=== PATIENT | female | born 1955 | race Caucasian/White ===

== ENCOUNTER 2017-08-07 09:35 | Inpatient (IN) ==
[2017-08-07] MEDS ORDERED: Naloxone 0.4 MG/ML INJ IVP PRN (10:39)
[2017-08-07] MEDS ORDERED: Baclofen 10 MG TABLET PO PRN (11:27)
--- NOTE | 2017-08-07 11:36 | Internal Med History&Physical ---
Date of Encounter: 08/07/17 Time of Encounter: 11:30 Assessment and Plan (1) Acute parotitis Current visit: No Status: Acute Being managed by ENT, appreciate assistance. - Unasyn 3g Q6H - PO pain meds, continue home fentanyl patch (2) CKD (chronic kidney disease) stage 4, GFR 15-29 ml/min Current visit: Yes Status: Acute Creatinine at baseline - Avoid nephrotoxins (3) Cirrhosis Current visit: Yes Status: Acute History of this but family reportedly told that patient does not have cirrhosis based on recent evaluation at [facility]. Qualifiers: Hepatic cirrhosis type: unspecified hepatic cirrhosis Ascites presence: without ascites Qualified Code(s): K74.60 - Unspecified cirrhosis of liver (4) Hemochromatosis Current visit: No Status: Chronic Qualifiers: Hemochromatosis type: unspecified Qualified Code(s): E83.119 - Hemochromatosis, unspecified Internal Medicine - H&P: HPI Chief complaint: Right facial pain Admitted From: Direct Admit Plans for Post Hospital Care: Home History of present illness: Ms. Taylor is a 61 year old female with history of CKD, chronic decubitus ulcer , GERD, Still's disease, HTN, who presented to the ED yesterday evening with complaint of right sided facial pain which began yesterday morning. In the ED she was reportedly referred to ENT and today she was evaluated by Dr. Franco in the ENT clinic. He diagnosed parotitis and recommended admission for IV antibiotics and fluid resuscitation. She was admitted to hospitalist service because of complicated medical history. She states that she has chronic pain which is unchanged, she is on fentanyl patch and hydrocodone at home. She denies fever or chills. She has no chest pain or shortness of breath and other than the facial pain she feels she is currently at baseline pain level. 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 - follows with [facility]) Psychiatric history: depression - Past Surgical History Surgical History: appendectomy, cholecystectomy, hip replacement, knee replacement - Social History Smoking Status: Current every day smoker Smokeless Tobacco Status: No Alcohol use: none Drug use: none - Family History Father Hx Family Cardiac Disorders: Yes Internal Medicine - H&P: Meds Calcium Citrate/Vitamin D3 [Calcium Citrate +Vit D3 Tablet] 1,000 mg PO DAILY [History] Cholecalciferol (Vitamin D3) [Vitamin D3] 1,000 unit PO DAILY 10/19/15 [History] Docusate Sodium [Stool Softener] 100 mg PO TID 10/19/15 [History] L.acidoph,Paracasei, B.lactis [Probiotic] 1 each PO DAILY 10/19/15 [History] Lactose-Reduced Food [Ensure High Protein] 1 bottle PO BID 10/19/15 [History] Levothyroxine [Synthroid] 175 mcg PO DAILY 10/19/15 [History] Melatonin [Melatonin] 10 mg PO HS 10/19/15 [History] Multivitamin [Multivitamins] 1 each PO DAILY 10/19/15 [History] Omeprazole [PriLOSEC] 20 mg PO BIDAC 10/19/15 [History] Paricalcitol [Zemplar] 1 mg PO DAILY 10/19/15 [History] Sertraline [Zoloft] 100 mg PO BID 10/19/15 [History] Trazodone HCl [TraZODone] 200 mg PO HS 10/19/15 [History] Baclofen [Lioresal] 10 mg PO TID PRN 08/07/17 [History] FentaNYL PATCH [Duragesic] 100 mcg TD Q72H 08/07/17 [History] Gabapentin [Neurontin] 300 mg PO BID 08/07/17 [History] Oxycodone HCl 10 mg PO BID 08/07/17 [History] Propranolol HCl 40 mg PO BID 08/07/17 [History] 3 Allergy/AdvReac Type Severity Reaction Status Date / Time ketorolac [From Toradol] AdvReac See Verified 06/29/17 23:20 Comments NSAIDS (Non-Steroidal AdvReac See Verified 06/29/17 23:20 Anti-Inflamma Comments sulfamethoxazole AdvReac See Verified 06/29/17 23:20 [From Bactrim] Comments trimethoprim [From Bactrim] AdvReac See Verified 06/29/17 23:20 Comments All Systems PM: A 10-system review of systems was performed and is negative for pertinent findings except as documented above in the HPI. - Constitutional Vitals: BP 153/79 08/07/17 11:07 General appearance: Present: cooperative, A&O X 3, no acute distress - Head Head exam: Present: atraumatic - Eye Eye exam: Present: EOMI, sclera anicteric - ENT ENT exam: Present: mucous membranes dry - Neck Neck exam general surgery: Present: supple - Respiratory Respiratory exam: Present: CTAB. Absent: stridor, wheezes - Cardiovascular Cardiovascular exam: Present: RRR. Absent: diastolic murmur, gallop, rubs, systolic murmur - GI/Abdominal GI/Abdominal exam: Present: normal bowel sounds, soft. Absent: distended, tenderness - Extremities Exam Extremities exam: Present: pedal edema (trace lower extremity edema bilaterally) - Neurological Exam Neurological exam: Present: no focal deficits - Skin Skin exam: Absent: rash Internal Med - H&P Results - Labs CBC & Chem 7: 08/07/17 11:40
[2017-08-07 11:49] LABS: Basophils % 0.2 %; Eosinophils % 0.3 %; Hematocrit 31.1 % (35.3-44.9); Hemoglobin 10.2 g/dL (11.5-15.4); Immature Granulocytes % 0.6 % (0-4); Immature Platelets 2.7 % (1.1-6.1); Lymphocytes # 1.2 K/mcL (0.6-4.6); Lymphocytes % 8.1 %; Mean Corpuscular HGB Conc 32.8 g/dL (31.6-35.5); Mean Corpuscular Volume 94.5 fL (83.0-100.0); Mean Platelet Volume 10.3 fL (9.4-12.4); Monocytes # 1.1 K/mcL (0.0-1.3); Neutrophils # 11.7 K/mcL (1.6-8.9); Platelet Count 244 K/mcL (140-400); Red Blood Count 3.29 M/mcL (3.82-4.97); Red Cell Distribution Width 14.6 % (11.5-14.5); Segmented Neutrophils % 82.8 %
[2017-08-07] MEDS ORDERED: Ampicillin/Sulbactam 3,000 MG in 0.9 % Sodium Chloride Mini Bag 100 ML IVPB SCH ×2 (12:00→18:00)
[2017-08-07 12:02] LABS: Albumin 2.3 g/dL (3.5-5.0); Albumin/Globulin Ratio 0.4 (1.1-2.2); Bilirubin,Total 0.8 mg/dL (0.2-1.2); Globulin 5.3 g/dL (2.4-3.5); Magnesium 1.7 mg/dL (1.6-2.6); Phosphorous 5.1 mg/dL (2.3-4.7); Potassium 4.4 mEq/L (3.5-4.5); Total Protein 7.6 g/dL (6.0-8.3)
[2017-08-07 12:13] LABS: INR 1.3
[2017-08-07] MEDS: 0.9 % Sodium Chloride 1,000 ML IVC SCH ×2 (13:08→20:06)
[2017-08-07] MEDS: *HR* FentaNYL PATCH 100 MCG PATCH TD SCH (13:09)
[2017-08-07] MEDS: MethylPREDNISolone 40 MG/ML VIAL IVP SCH (15:26)
[2017-08-07] MEDS: *HR* HYDROcodone/Acet 10/325 mg TABLET PO PRN ×2 (15:26→20:36)
[2017-08-07] MEDS: Melatonin 3 MG TABLET PO SCH (20:05)
[2017-08-07] MEDS: Gabapentin 300 MG CAPSULE PO SCH (20:05)
[2017-08-07] MEDS: Ampicillin/Sulbactam 3,000 MG in 0.9 % Sodium Chloride 150 ML IVPB SCH (20:06)
[2017-08-07] MEDS ORDERED: *HR* OxyCODONE Immed Rel 5 MG TABLET PO SCH (21:00)
[2017-08-08] MEDS: MethylPREDNISolone 40 MG/ML VIAL IVP SCH ×3 (01:24→18:07)
[2017-08-08] MEDS: *HR* HYDROcodone/Acet 10/325 mg TABLET PO PRN ×5 (01:45→22:34)
--- NOTE | 2017-08-08 06:29 | ENT - Progress Note ---
Date of Encounter: 08/08/17 Time of Encounter: 06:30 - Assessment and Plan (1) Acute parotitis Current Visit: Yes Status: Acute White female followed up for acute parotitis pain better because of pain management but no real progression towards healing recommending (institution of sialagogues as soon as possible continue with milking of the gland regular basis and maximum hydration and continue steroids and antibiotics (2) Suppurative parotitis Current Visit: Yes Status: Acute Subjective Patient reports: no new complaints, still having pain, pain is less (Follow-up for parotitis still markedly swollen patient dry not using abelardo yet but improving) Objective Initial Vital Signs BP 153/79 08/07/17 11:07 - General physical appearance well developed, well nourished, moderate pain - Eyes normal ocular movement - ENT normal pinna, normal nares, normal mucosa, decreased hearing, dry mucosa - Neck other (Large parotid swelling with induration but beginning to improve still dry mouth) - Respiratory normal expansion - Labs 08/07/17 11:40 08/07/17 11:40 Diabetes panel 08/07/17 Range/Units 11:40 Sodium 133 L (136-145) mEq/L Potassium 4.4 (3.5-4.5) mEq/L Chloride 102 (98-109) mEq/L Carbon Dioxide 19 (19-29) mEq/L BUN 99 H (7-20) mg/dL Creatinine 3.33 H (0.57-1.11) mg/dL Glucose 109 H (70-99) mg/dL Calcium 9.0 (8.6-10.8) mg/dL AST 14 (5-34) Units/L ALT 10 (0-55) Units/L Alkaline Phosphatase 105 (38-126) Units/L Albumin 2.3 L (3.5-5.0) g/dL Calcium panel 08/07/17 Range/Units 11:40 Calcium 9.0 (8.6-10.8) mg/dL Phosphorus 5.1 H (2.3-4.7) mg/dL Albumin 2.3 L (3.5-5.0) g/dL Pituitary panel 08/07/17 Range/Units 11:40 Sodium 133 L (136-145) mEq/L Potassium 4.4 (3.5-4.5) mEq/L Chloride 102 (98-109) mEq/L Carbon Dioxide 19 (19-29) mEq/L BUN 99 H (7-20) mg/dL Creatinine 3.33 H (0.57-1.11) mg/dL Glucose 109 H (70-99) mg/dL Calcium 9.0 (8.6-10.8) mg/dL Adrenal panel 08/07/17 Range/Units 11:40 Sodium 133 L (136-145) mEq/L Potassium 4.4 (3.5-4.5) mEq/L Chloride 102 (98-109) mEq/L Carbon Dioxide 19 (19-29) mEq/L BUN 99 H (7-20) mg/dL Creatinine 3.33 H (0.57-1.11) mg/dL Glucose 109 H (70-99) mg/dL Calcium 9.0 (8.6-10.8) mg/dL Total Bilirubin 0.8 (0.2-1.2) mg/dL AST 14 (5-34) Units/L ALT 10 (0-55) Units/L Alkaline Phosphatase 105 (38-126) Units/L Albumin 2.3 L (3.5-5.0) g/dL Consult Discharge Plan - Plan Referrals: Az Rene MD [Primary Care Provider] -
[2017-08-08] MEDS: Cholecalciferol (D-3) 1,000 UNIT TABLET PO SCH (08:08)
[2017-08-08] MEDS: Gabapentin 300 MG CAPSULE PO SCH ×2 (08:10→20:23)
[2017-08-08] MEDS: Ampicillin/Sulbactam 3,000 MG in 0.9 % Sodium Chloride 150 ML IVPB SCH ×2 (08:11→18:08)
[2017-08-08 08:35] LABS: Basophils % 0.2 %; Hematocrit 33.2 % (35.3-44.9); Hemoglobin 10.8 g/dL (11.5-15.4); Immature Granulocytes % 0.5 % (0-4); Lymphocytes # 0.6 K/mcL (0.6-4.6); Lymphocytes % 3.4 %; Mean Corpuscular HGB Conc 32.5 g/dL (31.6-35.5); Mean Corpuscular Hemoglobin 31.2 pg (28.0-33.3); Mean Platelet Volume 10.6 fL (9.4-12.4); Monocytes # 0.1 K/mcL (0.0-1.3); Monocytes % 0.8 %; Platelet Count 226 K/mcL (140-400); Red Blood Count 3.46 M/mcL (3.82-4.97); Red Cell Distribution Width 14.7 % (11.5-14.5); Segmented Neutrophils % 95.1 %
[2017-08-08 08:43] LABS: Calcium 8.2 mg/dL (8.6-10.8); Potassium 5.3 mEq/L (3.5-4.5)
[2017-08-08] MEDS: ACIDOPH PARACASEI B LACTIS PO SCH (14:11)
[2017-08-08] MEDS: 0.9 % Sodium Chloride 1,000 ML IVC SCH ×3 (14:15→22:34)
--- NOTE | 2017-08-08 17:49 | Internal Med Progress Note ---
Date of Encounter: 08/08/17 Time of Encounter: 10:00 - Assessment and plan (1) Acute parotitis Current Visit: Yes Status: Acute Assessment and plan: -ENT consulted with recommendations for sialagogues as soon as possible and to continue with milking of the gland regular basis in addition to maximum hydration and continue steroids/antibiotics -Will continue IV Unasyn and IV steroids. (2) CKD (chronic kidney disease) stage 4, GFR 15-29 ml/min Current Visit: Yes Status: Acute Assessment and plan: -Stable; continue to monitor. (3) Cirrhosis Current Visit: Yes Status: Acute Assessment and plan: -Chronic; continue to monitor Qualifiers: Hepatic cirrhosis type: unspecified hepatic cirrhosis Ascites presence: without ascites Qualified Code(s): K74.60 - Unspecified cirrhosis of liver (4) Hypothyroid Current Visit: Yes Status: Acute Assessment and plan: -Continue home medications Qualifiers: Hypothyroidism type: unspecified Qualified Code(s): E03.9 - Hypothyroidism , unspecified - Subjective Interval history: Patient with continued swelling of right parotid gland. - Constitutional Vitals: Temp Pulse Resp BP Pulse Ox 97.5 F L 59 16 118/72 98 08/08/17 16:14 08/08/17 16:14 08/08/17 16:14 08/08/17 16:14 08/08/17 16:14 General appearance: Present: cooperative, A&O X 3, no acute distress - Respiratory Respiratory exam: Present: CTAB. Absent: accessory muscle use, rales, rhonchi, wheezes - Cardiovascular Cardiovascular exam: Present: RRR, +S1, +S2. Absent: diastolic murmur, gallop, rubs, systolic murmur Internal Medicine: Result - Labs CBC & Chem 7: 08/08/17 08:10 08/08/17 08:10 Labs: Short CBC 08/08/17 Range/Units 08:10 WBC 16.8 H (4.3-11.1) K/mcL Hgb 10.8 L (11.5-15.4) g/dL Hct 33.2 L (35.3-44.9) % Plt Count 226 (140-400) K/mcL Neutrophils # 16.0 H (1.6-8.9) K/mcL BMP 08/08/17 08:10 Sodium 136 Potassium 5.3 H Chloride 109 Carbon Dioxide 14 L BUN 99 H Creatinine 3.13 H Glucose 133 H Calcium 8.2 L - ABG Interpretation ABG results: PT/INR, D-dimer PT 14.0 Seconds (9.4-12.1) H 08/07/17 11:40 Consult Discharge Plan - Plan Referrals: Az Rene MD [Primary Care Provider] -
[2017-08-09] MEDS: MethylPREDNISolone 40 MG/ML VIAL IVP SCH ×3 (00:19→16:11)
[2017-08-09] MEDS: Melatonin 3 MG TABLET PO SCH ×2 (03:39→07:09)
[2017-08-09] MEDS: *HR* HYDROcodone/Acet 10/325 mg TABLET PO PRN ×3 (03:45→22:39)
[2017-08-09] MEDS: traZODone 50 MG TABLET PO PRN (07:09)
--- NOTE | 2017-08-09 08:09 | ENT - Progress Note ---
Date of Encounter: 08/09/17 Time of Encounter: 08:00 - Assessment and Plan (1) Acute parotitis Current Visit: Yes Status: Acute White female followed up for acute parotitis white count elevation yesterday and failure to turn the corner makes me slightly concerned about the possibility of potential abscessing of the right parotid repeat white count today and if this is continuing to go North consider repeat CT to document the presence of abscess which may require operative drainage culture result from office reveals staph aureus which should be responsive to Augmentin or Unasyn (2) Suppurative parotitis Current Visit: Yes Status: Acute Subjective Patient reports: no new complaints, still having pain (Some decrease in edema but yesterday's white count was substantially higher with left shift still getting some pus from the duct patient is afebrile ) Objective Initial Vital Signs BP 153/79 08/07/17 11:07 - General physical appearance well developed, well nourished, no distress - Eyes PERRL, normal ocular movement - ENT normal pinna, normal nares, normal mucosa, dry mucosa, Other (Possible able to be excluded from right duct on milking mouth still dry) - Neck other (Substantial parotid enlargement slightly less than before but still firm hard and tender) - Respiratory normal expansion, normal respiratory effort - Abdomen soft, non tender - Integumentary no rash, no growths, other (Left ear sore at site of previous melanoma excision years ago) - Neurologic CN 2-12 grossly intact, normal coordination - Labs 08/08/17 08:10 08/08/17 08:10 Diabetes panel 08/08/17 Range/Units 08:10 Sodium 136 (136-145) mEq/L Potassium 5.3 H (3.5-4.5) mEq/L Chloride 109 (98-109) mEq/L Carbon Dioxide 14 L (19-29) mEq/L BUN 99 H (7-20) mg/dL Creatinine 3.13 H (0.57-1.11) mg/dL Glucose 133 H (70-99) mg/dL Calcium 8.2 L (8.6-10.8) mg/dL Calcium panel 08/08/17 Range/Units 08:10 Calcium 8.2 L (8.6-10.8) mg/dL Pituitary panel 08/08/17 Range/Units 08:10 Sodium 136 (136-145) mEq/L Potassium 5.3 H (3.5-4.5) mEq/L Chloride 109 (98-109) mEq/L Carbon Dioxide 14 L (19-29) mEq/L BUN 99 H (7-20) mg/dL Creatinine 3.13 H (0.57-1.11) mg/dL Glucose 133 H (70-99) mg/dL Calcium 8.2 L (8.6-10.8) mg/dL Adrenal panel 08/08/17 Range/Units 08:10 Sodium 136 (136-145) mEq/L Potassium 5.3 H (3.5-4.5) mEq/L Chloride 109 (98-109) mEq/L Carbon Dioxide 14 L (19-29) mEq/L BUN 99 H (7-20) mg/dL Creatinine 3.13 H (0.57-1.11) mg/dL Glucose 133 H (70-99) mg/dL Calcium 8.2 L (8.6-10.8) mg/dL Consult Discharge Plan - Plan Referrals: Az Rene MD [Primary Care Provider] -
[2017-08-09] MEDS: Ampicillin/Sulbactam 3,000 MG in 0.9 % Sodium Chloride 150 ML IVPB SCH ×2 (08:39→19:26)
[2017-08-09] MEDS: 0.9 % Sodium Chloride 1,000 ML IVC SCH ×2 (08:39→16:14)
[2017-08-09] MEDS: ACIDOPH PARACASEI B LACTIS PO SCH (08:40)
[2017-08-09 09:04] LABS: Calcium 7.3 mg/dL (8.6-10.8); Potassium 4.7 mEq/L (3.5-4.5)
[2017-08-09 14:29] LABS: Basophils % 0.1 %; Hemoglobin 7.9 g/dL (11.5-15.4); Lymphocytes # 0.9 K/mcL (0.6-4.6); Lymphocytes % 6.3 %; Mean Corpuscular HGB Conc 32.9 g/dL (31.6-35.5); Mean Corpuscular Hemoglobin 31.5 pg (28.0-33.3); Mean Corpuscular Volume 95.6 fL (83.0-100.0); Mean Platelet Volume 10.4 fL (9.4-12.4); Monocytes # 0.4 K/mcL (0.0-1.3); Monocytes % 2.9 %; Neutrophils # 12.8 K/mcL (1.6-8.9); Platelet Count 200 K/mcL (140-400); Red Blood Count 2.51 M/mcL (3.82-4.97); Red Cell Distribution Width 15.1 % (11.5-14.5); Segmented Neutrophils % 89.7 %
[2017-08-09] MEDS: Gabapentin 300 MG CAPSULE PO SCH ×2 (16:12→22:39)
[2017-08-09] MEDS: Cholecalciferol (D-3) 1,000 UNIT TABLET PO SCH (16:13)
--- NOTE | 2017-08-09 18:26 | Internal Med Progress Note ---
Date of Encounter: 08/09/17 Time of Encounter: 11:00 - Assessment and plan (1) Acute parotitis Current Visit: Yes Status: Acute Assessment and plan: -Decreased swelling of right parotid gland and patient reports decreased tenderness as well. -Leukocytosis also improving -ENT consulted with recommendations for sialagogues as soon as possible and to continue with milking of the gland regular basis in addition to maximum hydration and continue steroids/antibiotics -Will continue IV Unasyn and IV steroids. (2) CKD (chronic kidney disease) stage 4, GFR 15-29 ml/min Current Visit: Yes Status: Acute Assessment and plan: -Stable; continue to monitor. (3) Cirrhosis Current Visit: Yes Status: Acute Assessment and plan: -Chronic; continue to monitor Qualifiers: Hepatic cirrhosis type: unspecified hepatic cirrhosis Ascites presence: without ascites Qualified Code(s): K74.60 - Unspecified cirrhosis of liver (4) Hypothyroid Current Visit: Yes Status: Acute Assessment and plan: -Continue home medications Qualifiers: Hypothyroidism type: unspecified Qualified Code(s): E03.9 - Hypothyroidism , unspecified - Subjective Interval history: Patient with improvement of swelling of right parotid gland. Patient also reports a decreased tenderness. - Constitutional Vitals: Temp Pulse Resp BP Pulse Ox 98.1 F 63 16 116/70 95 08/09/17 15:12 08/09/17 15:12 08/09/17 15:12 08/09/17 15:12 08/09/17 15:12 General appearance: Present: cooperative, A&O X 3, no acute distress - ENT Additional comments: Decreased swelling of right parotid gland - Respiratory Respiratory exam: Present: CTAB. Absent: accessory muscle use, rales, rhonchi, wheezes - Cardiovascular Cardiovascular exam: Present: RRR, +S1, +S2. Absent: diastolic murmur, gallop, rubs, systolic murmur Internal Medicine: Result - Labs CBC & Chem 7: 08/09/17 14:03 08/09/17 08:36 Labs: Short CBC 08/09/17 Range/Units 14:03 WBC 14.3 H (4.3-11.1) K/mcL Hgb 7.9 L D (11.5-15.4) g/dL Hct 24.0 L (35.3-44.9) % Plt Count 200 (140-400) K/mcL Neutrophils # 12.8 H (1.6-8.9) K/mcL BMP 08/09/17 08:36 Sodium 134 L Potassium 4.7 H Chloride 110 H Carbon Dioxide 12 L BUN 95 H Creatinine 3.05 H Glucose 175 H Calcium 7.3 L - ABG Interpretation ABG results: PT/INR, D-dimer PT 14.0 Seconds (9.4-12.1) H 08/07/17 11:40 Consult Discharge Plan - Plan Referrals: Az Rene MD [Primary Care Provider] -
[2017-08-10] MEDS: MethylPREDNISolone 40 MG/ML VIAL IVP SCH ×4 (01:58→23:55)
[2017-08-10] MEDS: *HR* HYDROcodone/Acet 10/325 mg TABLET PO PRN ×4 (02:58→15:44)
[2017-08-10] MEDS: 0.9 % Sodium Chloride 1,000 ML IVC SCH ×3 (02:59→18:11)
[2017-08-10] MEDS: Melatonin 3 MG TABLET PO SCH ×2 (07:09→23:55)
[2017-08-10] MEDS: Cholecalciferol (D-3) 1,000 UNIT TABLET PO SCH (08:45)
[2017-08-10] MEDS: ACIDOPH PARACASEI B LACTIS PO SCH (08:45)
[2017-08-10] MEDS: Gabapentin 300 MG CAPSULE PO SCH ×2 (08:45→21:37)
[2017-08-10 08:47] LABS: Calcium 7.6 mg/dL (8.6-10.8); Potassium 4.9 mEq/L (3.5-4.5)
[2017-08-10 08:48] LABS: Basophils % 0.1 %; Hematocrit 26.4 % (35.3-44.9); Hemoglobin 8.4 g/dL (11.5-15.4); Immature Granulocytes % 1.5 % (0-4); Lymphocytes # 0.9 K/mcL (0.6-4.6); Lymphocytes % 6.1 %; Mean Corpuscular HGB Conc 31.8 g/dL (31.6-35.5); Mean Corpuscular Hemoglobin 31.1 pg (28.0-33.3); Mean Corpuscular Volume 97.8 fL (83.0-100.0); Monocytes # 0.3 K/mcL (0.0-1.3); Monocytes % 2.2 %; Platelet Count 216 K/mcL (140-400); Red Cell Distribution Width 15.5 % (11.5-14.5); Segmented Neutrophils % 90.1 %
[2017-08-10] MEDS: Ampicillin/Sulbactam 3,000 MG in 0.9 % Sodium Chloride 150 ML IVPB SCH ×3 (08:49→18:28)
--- NOTE | 2017-08-10 09:46 | ENT - Progress Note ---
<Maryan Shepherd - Last Filed: 08/10/17 10:50> Date of Encounter: 08/10/17 Time of Encounter: 09:43 - Assessment and Plan (1) Acute parotitis Current Visit: Yes Status: Acute Patient seen and examined at bedside today. Patient reports mild pain, decreased from previous pain level. Purulent drainage expelled from right parotoid duct, with 5x4 area of induration present to right cheek and tail of parotid, improved from previous. Leukocytosis improving, WBC's 14.4 today. Recommend to continue lemon slices, manual drainage and massage of right parotid gland, heating pad to the affected area, and current antibiotic regimen. (2) Oral thrush Current Visit: Yes Status: Acute White patchy areas noted to bilateral buccal mucosa, surface of tongue, and area of the submandibular ducts. Patient also reports burning of the tongue when eating abelardo. Will start nystatin swish and spit QID for treatment of oral thrush. Subjective Patient reports: feels better, pain is less, tolerating liquids well, tolerating a regular diet, afebrile Objective Initial Vital Signs BP 153/79 08/07/17 11:07 - General physical appearance no distress - Eyes normal ocular movement - ENT Other (purulent drainage expelled from right parotoid duct, 5x4 area of induration noted to right cheek and tail of the parotid, white patches noted to buccal mucosa bilaterally, surface of tongue, and covering the area of the submandibular ducts bilaterally ) - Respiratory normal respiratory effort - Labs 08/10/17 08:21 08/10/17 08:21 Diabetes panel 08/10/17 Range/Units 08:21 Sodium 134 L (136-145) mEq/L Potassium 4.9 H (3.5-4.5) mEq/L Chloride 112 H (98-109) mEq/L Carbon Dioxide 12 L (19-29) mEq/L BUN 96 H (7-20) mg/dL Creatinine 2.94 H (0.57-1.11) mg/dL Glucose 132 H (70-99) mg/dL Calcium 7.6 L (8.6-10.8) mg/dL Calcium panel 08/10/17 Range/Units 08:21 Calcium 7.6 L (8.6-10.8) mg/dL Pituitary panel 08/10/17 Range/Units 08:21 Sodium 134 L (136-145) mEq/L Potassium 4.9 H (3.5-4.5) mEq/L Chloride 112 H (98-109) mEq/L Carbon Dioxide 12 L (19-29) mEq/L BUN 96 H (7-20) mg/dL Creatinine 2.94 H (0.57-1.11) mg/dL Glucose 132 H (70-99) mg/dL Calcium 7.6 L (8.6-10.8) mg/dL Adrenal panel 08/10/17 Range/Units 08:21 Sodium 134 L (136-145) mEq/L Potassium 4.9 H (3.5-4.5) mEq/L Chloride 112 H (98-109) mEq/L Carbon Dioxide 12 L (19-29) mEq/L BUN 96 H (7-20) mg/dL Creatinine 2.94 H (0.57-1.11) mg/dL Glucose 132 H (70-99) mg/dL Calcium 7.6 L (8.6-10.8) mg/dL Consult Discharge Plan - Plan Referrals: Az Rene MD [Primary Care Provider] - <Amita Shin - Last Filed: 08/10/17 15:32> Date of Encounter: 08/10/17 - Assessment and Plan (1) Oral thrush Current Visit: Yes Status: Acute Agree with assessment as above. Patient with evidence of oral thrush likely secondary to antibiotic treatment. Patient will need script for nystatin swish and spit QID for a total of 7-10 days or until symptoms resolve. (2) Acute parotitis Current Visit: Yes Status: Acute Agree with above, continue to perform parotid massage multiple times daily. At this point patient is clinically improving and would not recommend repeating any scans. If patient continues to improve would recommend transitioning to oral antibiotic, Augmentin upon discharge with follow up to ENT in 2 weeks. Objective Initial Vital Signs BP 153/79 08/07/17 11:07 - Labs 08/10/17 08:21 08/10/17 08:21 Diabetes panel 08/10/17 Range/Units 08:21 Sodium 134 L (136-145) mEq/L Potassium 4.9 H (3.5-4.5) mEq/L Chloride 112 H (98-109) mEq/L Carbon Dioxide 12 L (19-29) mEq/L BUN 96 H (7-20) mg/dL Creatinine 2.94 H (0.57-1.11) mg/dL Glucose 132 H (70-99) mg/dL Calcium 7.6 L (8.6-10.8) mg/dL Calcium panel 08/10/17 Range/Units 08:21 Calcium 7.6 L (8.6-10.8) mg/dL Pituitary panel 08/10/17 Range/Units 08:21 Sodium 134 L (136-145) mEq/L Potassium 4.9 H (3.5-4.5) mEq/L Chloride 112 H (98-109) mEq/L Carbon Dioxide 12 L (19-29) mEq/L BUN 96 H (7-20) mg/dL Creatinine 2.94 H (0.57-1.11) mg/dL Glucose 132 H (70-99) mg/dL Calcium 7.6 L (8.6-10.8) mg/dL Adrenal panel 08/10/17 Range/Units 08:21 Sodium 134 L (136-145) mEq/L Potassium 4.9 H (3.5-4.5) mEq/L Chloride 112 H (98-109) mEq/L Carbon Dioxide 12 L (19-29) mEq/L BUN 96 H (7-20) mg/dL Creatinine 2.94 H (0.57-1.11) mg/dL Glucose 132 H (70-99) mg/dL Calcium 7.6 L (8.6-10.8) mg/dL
[2017-08-10] MEDS: *HR* FentaNYL PATCH 100 MCG PATCH TD SCH (13:52)
[2017-08-10] MEDS: Nystatin SUSP 5 ML UD.LIQ PO SCH ×3 (13:52→21:36)
--- NOTE | 2017-08-10 18:59 | Internal Med Progress Note ---
Date of Encounter: 08/10/17 Time of Encounter: 11:00 - Assessment and plan (1) Acute parotitis Current Visit: Yes Status: Acute Assessment and plan: -Decreased swelling of right parotid gland and patient reports decreased tenderness as well. -Leukocytosis also improving -ENT consulted with recommendations for sialagogues as soon as possible and to continue with milking of the gland regular basis in addition to maximum hydration and continue steroids/antibiotics -Will continue IV Unasyn and IV steroids. (2) CKD (chronic kidney disease) stage 4, GFR 15-29 ml/min Current Visit: Yes Status: Acute Assessment and plan: -Stable; continue to monitor. (3) Cirrhosis Current Visit: Yes Status: Acute Assessment and plan: -Chronic; continue to monitor Qualifiers: Hepatic cirrhosis type: unspecified hepatic cirrhosis Ascites presence: without ascites Qualified Code(s): K74.60 - Unspecified cirrhosis of liver (4) Hypothyroid Current Visit: Yes Status: Acute Assessment and plan: -Continue home medications Qualifiers: Hypothyroidism type: unspecified Qualified Code(s): E03.9 - Hypothyroidism , unspecified (5) Oral thrush Current Visit: Yes Status: Acute Assessment and plan: -Nystatin started per ENT - Subjective Interval history: Patient with improvement of swelling of right parotid gland. Patient also reports a decreased tenderness. - Constitutional Vitals: Temp Pulse Resp BP Pulse Ox 98.3 F 56 16 146/63 96 08/10/17 12:12 08/10/17 12:12 08/10/17 12:12 08/10/17 12:12 08/10/17 12:12 General appearance: Present: cooperative, A&O X 3, no acute distress - Respiratory Respiratory exam: Present: CTAB. Absent: accessory muscle use, rales, rhonchi, wheezes - Cardiovascular Cardiovascular exam: Present: RRR, +S1, +S2. Absent: diastolic murmur, gallop, rubs, systolic murmur Internal Medicine: Result - Labs CBC & Chem 7: 08/10/17 08:21 08/10/17 08:21 Labs: Short CBC 08/10/17 Range/Units 08:21 WBC 14.4 H (4.3-11.1) K/mcL Hgb 8.4 L (11.5-15.4) g/dL Hct 26.4 L (35.3-44.9) % Plt Count 216 (140-400) K/mcL Neutrophils # 13.0 H (1.6-8.9) K/mcL BMP 08/10/17 08:21 Sodium 134 L Potassium 4.9 H Chloride 112 H Carbon Dioxide 12 L BUN 96 H Creatinine 2.94 H Glucose 132 H Calcium 7.6 L - ABG Interpretation ABG results: PT/INR, D-dimer PT 14.0 Seconds (9.4-12.1) H 08/07/17 11:40 Consult Discharge Plan - Plan Referrals: Az Rene MD [Primary Care Provider] -
[2017-08-10] MEDS: traZODone 50 MG TABLET PO PRN (23:55)
[2017-08-11] MEDS: *HR* HYDROcodone/Acet 10/325 mg TABLET PO PRN ×3 (00:01→15:09)
[2017-08-11] MEDS: 0.9 % Sodium Chloride 1,000 ML IVC SCH ×2 (03:23→03:25)
[2017-08-11] MEDS: Ampicillin/Sulbactam 3,000 MG in 0.9 % Sodium Chloride 150 ML IVPB SCH (05:25)
[2017-08-11] MEDS: Gabapentin 300 MG CAPSULE PO SCH (09:19)
[2017-08-11] MEDS: MethylPREDNISolone 40 MG/ML VIAL IVP SCH ×2 (09:19→15:09)
[2017-08-11] MEDS: Cholecalciferol (D-3) 1,000 UNIT TABLET PO SCH (09:20)
[2017-08-11] MEDS: Nystatin SUSP 5 ML UD.LIQ PO SCH ×3 (09:20→15:13)
[2017-08-11] MEDS: ACIDOPH PARACASEI B LACTIS PO SCH (09:21)
[2017-08-11 11:10] VITALS: BP 133/71
--- NOTE | 2017-08-11 11:45 | Discharge Summary ---
Date of Encounter: 08/11/17 Time of Encounter: 10:40 - Discharge Diagnosis (1) Acute parotitis Priority: Primary Status: Acute (2) Cirrhosis Priority: Secondary Status: Acute Qualifiers: Hepatic cirrhosis type: unspecified hepatic cirrhosis Ascites presence: without ascites Qualified Code(s): K74.60 - Unspecified cirrhosis of liver (3) CKD (chronic kidney disease) stage 4, GFR 15-29 ml/min Priority: Secondary Status: Acute (4) Hypothyroid Priority: Secondary Status: Acute Qualifiers: Hypothyroidism type: other Qualified Code(s): E03.8 - Other specified hypothyroidism (5) Oral thrush Priority: Secondary Status: Acute - Discharge Medications Prescriptions: HYDROcodone/Acet 10/325 mg [[place] 10-325 mg] 1 each PO Q6HR PRN #16 tablet PRN Reason: Pain Amoxicillin/Clavulanate [Augmentin] 875 mg PO BIDWM #14 tablet Nystatin [Nystatin Suspension] 500,000 units PO QID #120 ml Home Medications: Calcium Citrate/Vitamin D3 [Calcium Citrate-Vit D3 Tablet] 1,000 mg PO DAILY 01/27 [History] Cholecalciferol (Vitamin D3) [Vitamin D3] 1,000 unit PO DAILY 10/19/15 [History] Docusate Sodium [Stool Softener] 100 mg PO TID 10/19/15 [History] L.acidoph,Paracasei, B.lactis [Probiotic] 1 each PO DAILY 10/19/15 [History] Lactose-Reduced Food [Ensure High Protein] 1 bottle PO BID 10/19/15 [History] Levothyroxine [Synthroid] 175 mcg PO DAILY 10/19/15 [History] Melatonin 10 mg PO HS 10/19/15 [History] Multivitamin [Multivitamins] 1 each PO DAILY 10/19/15 [History] Omeprazole [PriLOSEC] 20 mg PO BIDAC 10/19/15 [History] Paricalcitol [Zemplar] 1 mg PO DAILY 10/19/15 [History] Sertraline [Zoloft] 100 mg PO BID 10/19/15 [History] Trazodone HCl [TraZODone] 200 mg PO HS 10/19/15 [History] Baclofen [Lioresal] 10 mg PO TID PRN 08/07/17 [History] FentaNYL PATCH [Duragesic] 100 mcg TD Q72H 08/07/17 [History] Gabapentin [Neurontin] 300 mg PO BID 08/07/17 [History] Propranolol HCl 40 mg PO BID 08/07/17 [History] Amoxicillin/Clavulanate [Augmentin] 875 mg PO BIDWM #14 tablet 08/11/17 [Rx] HYDROcodone/Acet 10/325 mg [[place] 10-325 mg] 1 each PO Q6HR PRN #16 tablet 08/11 [Rx] Nystatin [Nystatin Suspension] 500,000 units PO QID #120 ml 08/11/17 [Rx] Allergies/Adverse Reactions: 3 Allergy/AdvReac Type Severity Reaction Status Date / Time ketorolac [From Toradol] AdvReac See Verified 06/29/17 23:20 Comments NSAIDS (Non-Steroidal AdvReac See Verified 06/29/17 23:20 Anti-Inflamma Comments sulfamethoxazole AdvReac See Verified 06/29/17 23:20 [From Bactrim] Comments trimethoprim [From Bactrim] AdvReac See Verified 06/29/17 23:20 Comments Date of admission: 08/09/17 18:55 Primary care physician: Az Rene MD Consults: 08/07/17 11:45 Consult to ENT [CONS] Routine Consulting Provider: [facility] [place] Reason for Consult: parotitis Call Completed: Yes 08/07/17 12:57 Consult to Wound Care [CONS] Routine Reason for Consult: decubitus ulcer Call Completed: Yes Discharging clinician: Mal Allison Anticipated date of discharge: 08/11/17 - Patient Status Disposition: Home, Self-Care Condition: Good Functional capacity at discharge: independent ambulation Overall status at discharge: patient is progressing back to baseline - Discharge Instructions Instructions: Hydrocodone/Acetaminophen (By mouth), Nystatin (By mouth), Amoxicillin/Clavulanate Potassium (By mouth), Chronic Kidney Disease (GEN) Follow Up With: Javier Espinoza MD [Non-Partnered Physician] - 08/18/17 1:45 pm Az Rene MD [Primary Care Provider] - 08/17/17 1:00 pm () Amita Shin DO [Non-Partnered Physician] - 08/19/17 1:30 pm () - Diet and Activity Activity: increase activity as tolerated Diet: advance to your usual diet Hospital course: Ms. Taylor is a 61 year old female patient with history of cirrhosis of the liver, chronic kidney disease stage IV, hemochromatosis who was admitted here with right facial pain. She was diagnosed with acute parotitis and was treated with IV antibiotics. ENT was consulted and they evaluated the patient and did not recommend any surgical intervention. Patient was recommended to perform parotid massage multiple times daily and this along with the use of IV antibiotics improved her symptoms. She is not doing much better and is stable to be discharged home. She was also diagnosed with oral thrush and has been prescribed oral nystatin suspension to treat this. She will be discharged home today on Augmentin to complete treatment course. Patient does have chronic decubitus ulcer for which she performs wound care at home. - Time Spent with Patient Total time spent providing and/or coordinating discharge services: Greater than 30 minutes (35 min) - Constitutional Vitals: Temp Pulse Resp BP Pulse Ox 97.9 F 55 18 133/71 95 08/11/17 11:09 08/11/17 11:09 08/11/17 11:09 08/11/17 11:09 08/11/17 11:09 General appearance: Present: cooperative, A&O X 3, no acute distress, answers questions appropriately - ENT Additional comments: right parotid gland swollen. Non tender. NO erythema - Neck Neck exam general surgery: Present: supple, trachea midline. Absent: lymphadenopathy - Respiratory Respiratory exam: Present: CTAB. Absent: accessory muscle use, rales, rhonchi, wheezes - Cardiovascular Cardiovascular exam: Present: RRR, +S1, +S2. Absent: diastolic murmur, gallop, rubs, systolic murmur - Extremities Exam Extremities exam: Present: warm, radial pulses palpable and symmetrical. Absent : calf tenderness, cyanotic, pedal edema - Neurological Exam Neurological exam: Present: alert, oriented X3, no focal deficits. Absent: facial droop, speech deficit
--- NOTE | 2017-08-11 12:57 | ENT - Progress Note ---
Date of Encounter: 08/11/17 Time of Encounter: 12:57 - Assessment and Plan (1) Acute parotitis Current Visit: Yes Status: Acute Patient seen and examined at bedside today. Patient reports little to no pain at times. Thin purulent drainage expelled from right parotoid duct, with 4x3 area of induration present to right cheek and tail of parotid, improved from yesterday. Patient states she is tolerating liquids and a regular diet at this time. Continue to recommend lemon slices, manual drainage and massage of right parotid gland, heating pad to the affected area, and antibiotics. May transition to oral antibiotic, Augmentin for 7 days upon discharge with follow up to ENT in 1 week. (2) Oral thrush Current Visit: Yes Status: Acute Mucosa noted to have normal appearance upon exam today. Patient does continue to report mild burning of the tongue at times but improved from yesterday. Continue nystatin swish and spit QID for treatment of oral thrush. Subjective Patient reports: no new complaints, feels better, pain is less, tolerating liquids well, tolerating a regular diet Objective Initial Vital Signs BP 153/79 08/07/17 11:07 - General physical appearance no distress - Eyes normal ocular movement - ENT CN 2-12 grossly intact, Other (thin purulent drainage expelled from right parotoid duct, 4x3 induration noted to the right cheek and into the tail of the parotoid (decreased from previous)) - Neck trachea midline - Respiratory normal respiratory effort - Labs 08/10/17 08:21 08/10/17 08:21 Consult Discharge Plan - Plan Instructions: Hydrocodone/Acetaminophen (By mouth), Nystatin (By mouth), Amoxicillin/Clavulanate Potassium (By mouth), Chronic Kidney Disease (GEN) Referrals: Javier Espinoza MD [Non-Partnered Physician] - 08/18/17 1:45 pm Az Rene MD [Primary Care Provider] - 08/17/17 1:00 pm () Amita Shin DO [Non-Partnered Physician] - 08/19/17 1:30 pm () Prescriptions: HYDROcodone/Acet 10/325 mg [[place] 10-325 mg] 1 each PO Q6HR PRN #16 tablet PRN Reason: Pain Amoxicillin/Clavulanate [Augmentin] 875 mg PO BIDWM #14 tablet Nystatin [Nystatin Suspension] 500,000 units PO QID #120 ml
[2017-08-12] MEDS ORDERED: Lactobacillus 1 EACH CAP.SPRINK PO SCH (09:00)
== END 2017-08-11 18:08 | disposition home or self-care (01) | DRG 155 ==
LOC: 2NENU → SUATTDRO 08-09 18:55
PROVIDERS: ADMIT Internal Medicine; ATTEND Internal Medicine

== ENCOUNTER 2017-10-18 00:24 | Inpatient (IN) ==
[2017-10-18] MEDS ORDERED: Naloxone 0.4 MG/ML INJ IVP PRN ×2 (03:03)
[2017-10-18] MEDS ORDERED: Ondansetron 4 MG/2 ML VIAL IVP PRN (03:03)
[2017-10-18] MEDS ORDERED: 0.9 % Sodium Chloride 1,000 ML IVC SCH (03:15)
--- NOTE | 2017-10-18 03:29 | Internal Med History&Physical ---
Date of Encounter: 10/18/17 Time of Encounter: 02:00 Assessment and Plan (1) Closed right hip fracture Current visit: Yes Status: Acute Pt has mechanical fall and Rt hip fracture. - IVF, pain med. NPO now for possible surgery - Consult othopedics. Qualifiers: Encounter type: initial encounter Qualified Code(s): S72.001A - Fracture of unspecified part of neck of right femur, initial encounter for closed fracture (2) Osteoporosis Current visit: Yes Status: Acute Cont home meds Qualifiers: Osteoporosis type: unspecified Presence of current pathological fracture: unspecified Qualified Code(s): M81.0 - Age-related osteoporosis without current pathological fracture (3) CKD (chronic kidney disease) Current visit: No Status: Acute Cr 3.81 in [facility], is about at her baseline. Qualifiers: Chronic kidney disease stage: stage 4 (severe) Qualified Code(s): N18.4 - Chronic kidney disease, stage 4 (severe) (4) Hypothyroid Current visit: No Status: Acute Cont home med after resume diet Qualifiers: Hypothyroidism type: acquired Qualified Code(s): E03.9 - Hypothyroidism, unspecified (5) Sacral decubitus ulcer, stage IV Current visit: No Status: Acute Chronic, will consult wound care. (6) DVT prophylaxis Current visit: Yes Status: Acute SCDs at this point, may start AC after surgery. Internal Medicine - H&P: HPI Chief complaint: Right hip pain Admitted From: Intrahospital Transfer Plans for Post Hospital Care: Transfer Inp Rehab Fac History of present illness: Ms. Taylor is a 61 year old female with Hx of osteoperosis, depression, chronic sacral wound transferred from [facility] for fall and right Hip pain. Pt has mechanical fall today around 9pm when she went to bathroom. Denies LOC, denies head/neck injury. Pt feel right hip pain and went to [facility]. She was found Right hip fracture. Pt move other limbs w/o pain. She denies fever, chest pain, SOB, or dizziness. Pt was transfer to our hospital for orthopedics consult. Past Med Surg Social Fam HX - Past Medical History Medical history: cirrhosis, hypertension, liver disease, renal disease, thyroid disease, other Psychiatric history: depression - Past Surgical History Surgical History: non-contributory, appendectomy, , cholecystectomy, hip replacement, knee replacement, orthopedic, other, bariatric surgery - Social History Smoking Status: Current every day smoker Packs per day: <1 pack Smokeless Tobacco Status: No Alcohol use: none Drug use: none - Family History Father Adopted: [place]: Kwasi Aranda Age: 63 Living Status: Age at : 63 Cause of : Heart attack Hx Family Cardiac Disorders: Yes (heart disease) Hx Family Respiratory Disorders: No Hx Family Cancer: No Hx Family GI Disorders: No Hx Family Endocrine Disorder: Yes Hx Family Neuromuscular Disorders: No Hx Family Neurologic Disorders: No Hx Family HEENT Disorders: No Hx Family Autoimmune Disorders: No Mother History Unknown: Yes Adopted: No Living Status: Internal Medicine - H&P: Meds Calcium Citrate/Vitamin D3 [Calcium Citrate-Vit D3 Tablet] 1,000 mg PO DAILY 01/27 [History] Cholecalciferol (Vitamin D3) [Vitamin D3] 1,000 unit PO DAILY 10/19/15 [History] Docusate Sodium [Stool Softener] 100 mg PO TID 10/19/15 [History] L.acidoph,Paracasei, B.lactis [Probiotic] 1 each PO DAILY 10/19/15 [History] Lactose-Reduced Food [Ensure High Protein] 1 bottle PO BID 10/19/15 [History] Levothyroxine [Synthroid] 175 mcg PO DAILY 10/19/15 [History] Melatonin 10 mg PO HS 10/19/15 [History] Multivitamin [Multivitamins] 1 each PO DAILY 10/19/15 [History] Omeprazole [PriLOSEC] 20 mg PO BIDAC 10/19/15 [History] Paricalcitol [Zemplar] 1 mg PO DAILY 10/19/15 [History] Sertraline [Zoloft] 100 mg PO BID 10/19/15 [History] Trazodone HCl [TraZODone] 200 mg PO HS 10/19/15 [History] Baclofen [Lioresal] 10 mg PO TID PRN 08/07/17 [History] FentaNYL PATCH [Duragesic] 100 mcg TD Q72H 08/07/17 [History] Gabapentin [Neurontin] 300 mg PO BID 08/07/17 [History] Propranolol HCl 40 mg PO BID 08/07/17 [History] Amoxicillin/Clavulanate [Augmentin] 875 mg PO BIDWM #14 tablet 08/11/17 [Rx] HYDROcodone/Acet 10/325 mg [[place] 10-325 mg] 1 each PO Q6HR PRN #16 tablet 08/11 [Rx] Nystatin [Nystatin Suspension] 500,000 units PO QID #120 ml 08/11/17 [Rx] 3 Allergy/AdvReac Type Severity Reaction Status Date / Time ketorolac [From Toradol] AdvReac See Verified 06/29/17 23:20 Comments NSAIDS (Non-Steroidal AdvReac See Verified 06/29/17 23:20 Anti-Inflamma Comments sulfamethoxazole AdvReac See Verified 06/29/17 23:20 [From Bactrim] Comments trimethoprim [From Bactrim] AdvReac See Verified 06/29/17 23:20 Comments All Systems PM: A 10-system review of systems was performed and is negative for pertinent findings except as documented above in the HPI. - Head Head exam: Present: atraumatic, normocephalic - Eye Eye exam: Present: PERRL, conjuntiva pink, sclera anicteric Pupils: Present: PERRL - Neck Neck exam general surgery: Present: supple, trachea midline. Absent: lymphadenopathy - Respiratory Respiratory exam: Present: CTAB. Absent: accessory muscle use, rales, rhonchi, wheezes - Cardiovascular Cardiovascular exam: Present: RRR, +S1, +S2. Absent: diastolic murmur, gallop, rubs, systolic murmur - GI/Abdominal GI/Abdominal exam: Present: normal bowel sounds, soft, no peritoneal signs. Absent: distended, tenderness - Extremities Exam Extremities exam: Present: tenderness (On Right hip with limited ROM), warm, radial pulses palpable and symmetrical. Absent: calf tenderness, cyanotic, pedal edema - Neurological Exam Neurological exam: Present: CN II-XII intact, oriented X3, no focal deficits. Absent: pronater drift, facial droop, speech deficit - Skin Skin exam: Present: dry Additional comments: Sacral wound Internal Med - H&P Results - EKG Data -: EKG Interpreted by Myself EKG shows normal: sinus rhythm Rate: normal
[2017-10-18] MEDS: OXYCODONE Oral CONC 10 MG/0.5 ML ORAL.SYG SL PRN ×2 (04:19→12:38)
[2017-10-18 04:31] LABS: Basophils % 0.2 %; Eosinophils % 0.2 %; Hematocrit 31.6 % (35.3-44.9); Immature Granulocytes % 0.4 % (0-4); Lymphocytes # 0.7 K/mcL (0.6-4.6); Lymphocytes % 8.9 %; Mean Corpuscular HGB Conc 31.6 g/dL (31.6-35.5); Mean Corpuscular Hemoglobin 30.5 pg (28.0-33.3); Mean Corpuscular Volume 96.3 fL (83.0-100.0); Mean Platelet Volume 10.7 fL (9.4-12.4); Monocytes # 0.3 K/mcL (0.0-1.3); Monocytes % 4.2 %; Neutrophils # 6.9 K/mcL (1.6-8.9); Platelet Count 143 K/mcL (140-400); Red Blood Count 3.28 M/mcL (3.82-4.97); Red Cell Distribution Width 16.3 % (11.5-14.5); Segmented Neutrophils % 86.1 %
[2017-10-18 04:33] LABS: INR 1.1; Prothrombin Time 12.4 Seconds (9.4-12.1)
[2017-10-18 04:54] LABS: Calcium 9.7 mg/dL (8.6-10.3); Potassium 5.3 mEq/L (3.5-5.1)
--- NOTE | 2017-10-18 12:42 | Orthopedic Consult Note ---
Date of Encounter: 10/18/17 Time of Encounter: 12:39 Assessment and Plan (1) Closed right hip fracture Current Visit: Yes Status: Acute I will order a CT scan of the right hip to further evaluate the fracture pattern I discussed with patient possible surgery for surgical stabilization. We will discuss further after reviewing the CT scan. Nonweightbearing for now Nothing by mouth after midnight SCDs Qualifiers: Encounter type: initial encounter Qualified Code(s): S72.001A - Fracture of unspecified part of neck of right femur, initial encounter for closed fracture History of Present Illness Chief complaint: Right hip pain HPI: Ms. Taylor is a 61 year old female who normally endplates with a walker, patient was going to the bathroom last night, patient elected of the walker when she fell. She was taken to [facility] in the hospital where she was diagnosed with a right hip fracture. The patient was transferred to [place] for surgical management at her request. The patient denies loss of consciousness and denies getting dizzy before the fall. She currently reports no chest pain or shortness of breath. She has had multiple orthopedic surgeries done to spine and left hip and knee, which requires to use a walker. She also reports that she has tremors for which she needs a walker to steady herself. She has never had any surgeries performed on the right hip Past Med Surg Social Fam HX - Past Medical History Medical history: cirrhosis, hypertension, liver disease, renal disease, thyroid disease, other Psychiatric history: depression - Past Surgical History Surgical History: non-contributory, appendectomy, , cholecystectomy, hip replacement, knee replacement, orthopedic, other, bariatric surgery - Social History Smoking Status: Current every day smoker Packs per day: <1 pack Smokeless Tobacco Status: No Alcohol use: none Drug use: none - Family History Father Adopted: [place]: Kwasi Aranda Age: 63 Living Status: Age at : 63 Cause of : Heart attack Hx Family Cardiac Disorders: Yes (heart disease) Hx Family Respiratory Disorders: No Hx Family Cancer: No Hx Family GI Disorders: No Hx Family Endocrine Disorder: Yes Hx Family Neuromuscular Disorders: No Hx Family Neurologic Disorders: No Hx Family HEENT Disorders: No Hx Family Autoimmune Disorders: No Mother History Unknown: Yes Adopted: No Living Status: Medications and Allergies Calcium Citrate/Vitamin D3 [Calcium Citrate-Vit D3 Tablet] 500 mg PO 5XD [History] Cholecalciferol (Vitamin D3) [Vitamin D3] 1,000 unit PO DAILY 10/19/15 [History] L.acidoph,Paracasei, B.lactis [Probiotic] 1 each PO DAILY 10/19/15 [History] Lactose-Reduced Food [Ensure High Protein] 1 bottle PO BID 10/19/15 [History] Levothyroxine [Synthroid] 175 mcg PO DAILY 10/19/15 [History] Melatonin 10 mg PO HS 10/19/15 [History] Multivitamin [Multivitamins] 1 each PO DAILY 10/19/15 [History] Omeprazole [PriLOSEC] 40 mg PO BIDAC 10/19/15 [History] Paricalcitol [Zemplar] 1 mcg PO DAILY 10/19/15 [History] Sertraline [Zoloft] 100 mg PO BID 10/19/15 [History] Trazodone HCl [TraZODone] 200 mg PO HS 10/19/15 [History] Gabapentin [Neurontin] 300 mg PO BID 08/07/17 [History] Propranolol HCl 40 mg PO BID 08/07/17 [History] DULoxetine 60 mg PO BID 10/18/17 [History] Tizanidine HCl 4 mg PO TID 10/18/17 [History] Vitamin B-12 1,000 mcg PO DAILY 10/18/17 [History] 3 Allergy/AdvReac Type Severity Reaction Status Date / Time ketorolac [From Toradol] AdvReac See Verified 06/29/17 23:20 Comments NSAIDS (Non-Steroidal AdvReac See Verified 06/29/17 23:20 Anti-Inflamma Comments sulfamethoxazole AdvReac See Verified 06/29/17 23:20 [From Bactrim] Comments trimethoprim [From Bactrim] AdvReac See Verified 06/29/17 23:20 Comments All Systems Reviewed: A 10-system review of systems was performed and is negative for pertinent findings except as documented above in the HPI. - Musculoskeletal Musculoskeletal: abnormal gait Physical Exam - Constitutional Vitals: Temp Pulse Resp BP Pulse Ox 98.5 F 106 16 160/84 95 10/18/17 12:38 10/18/17 12:38 10/18/17 12:38 10/18/17 12:38 02/04/18 12:38 General appearance IM: disheveled, A&O X 3, no acute distress Exam: Head normocephalic/atraumatic Neck: Supple and nontender Bilateral upper extremities: No bruising. Full range of motion at major joints , no tenderness along long bones or joints Left lower extremity: Multiple surgical scars, no bruising, no tenderness no pain with motion, neurovascularly intact Right lower extremity: Slightly shortened and externally rotated, positive groin tenderness, pain with logroll, no tenderness at knee and ankle or foot, neurovascular intact distally Results - Labs Result Diagrams: 10/18/17 04:17 10/18/17 04:17 Labs: Abnormal lab results RBC 3.28 M/mcL (3.82-4.97) L 10/18/17 04:17 Hgb 10.0 g/dL (11.5-15.4) L 10/18/17 04:17 Hct 31.6 % (35.3-44.9) L 10/18/17 04:17 RDW 16.3 % (11.5-14.5) H 10/18/17 04:17 PT 12.4 Seconds (9.4-12.1) H 10/18/17 04:17 Potassium 5.3 mEq/L (3.5-5.1) H 10/18/17 04:17 Chloride 110 mEq/L (98-107) H 10/18/17 04:17 Carbon Dioxide 19 mEq/L (23-29) L 10/18/17 04:17 BUN 129 mg/dL (8-23) H 10/18/17 04:17 Creatinine 3.37 mg/dL (0.60-1.20) H 10/18/17 04:17 Est GFR ( Amer) 17 (> 60) L 10/18/17 04:17 Est GFR (Non-Af Amer) 14 (> 60) L 10/18/17 04:17 BUN/Creatinine Ratio 38 (6-26) H 10/18/17 04:17 Glucose 106 mg/dL (70-105) H 10/18/17 04:17 Calculated Osmolality 328 (280-300) H 10/18/17 04:17 H & H 10/18/17 Range/Units 04:17 Hgb 10.0 L (11.5-15.4) g/dL Hct 31.6 L (35.3-44.9) % All other labs normal. - Diagnostic results Hip x-ray: image reviewed (Right hip, questionable basicervical fracture) Consult Discharge Plan - Plan Referrals: Az Rene MD [Primary Care Provider] -
--- NOTE | 2017-10-18 16:22 | Internal Med Progress Note ---
Date of Encounter: 10/18/17 Time of Encounter: 16:20 - Assessment and plan (1) Closed right hip fracture Current Visit: Yes Status: Acute Assessment and plan: NPO in case of surgery Orthopedic Surgery consulted, recommendations appreciated Oxycodone prn pain Qualifiers: Encounter type: initial encounter Qualified Code(s): S72.001A - Fracture of unspecified part of neck of right femur, initial encounter for closed fracture (2) DVT prophylaxis Current Visit: Yes Status: Acute (3) Osteoporosis Current Visit: Yes Status: Acute Qualifiers: Osteoporosis type: unspecified Presence of current pathological fracture: unspecified Qualified Code(s): M81.0 - Age-related osteoporosis without current pathological fracture (4) CKD (chronic kidney disease) stage 4, GFR 15-29 ml/min Current Visit: No Status: Acute (5) Hypothyroid Current Visit: No Status: Acute Qualifiers: Hypothyroidism type: acquired Qualified Code(s): E03.9 - Hypothyroidism, unspecified (6) Sacral decubitus ulcer, stage IV Current Visit: No Status: Acute Assessment and plan: Wound care consulted (7) Cirrhosis Current Visit: No Status: Acute Assessment and plan: Fluids will be given cautiously to prevent overload. Qualifiers: Hepatic cirrhosis type: unspecified hepatic cirrhosis Ascites presence: without ascites Qualified Code(s): K74.60 - Unspecified cirrhosis of liver - Subjective Interval history: Patient admitted overnight as a transfer from [facility] for acute right hip fracture. She has CKD, Sacral decubitus ulcer stage 4, osteoporosis. Currently patient is in no acute distress but does complain of pain. - Constitutional Vitals: Temp Pulse Resp BP Pulse Ox 98.5 F 106 16 160/84 95 10/18/17 12:38 10/18/17 12:38 10/18/17 12:38 10/18/17 12:38 10/18/17 12:38 Exam: - Head Head exam: Present: atraumatic, normocephalic - Eye Eye exam: Present: PERRL, conjuntiva pink, sclera anicteric Pupils: Present: PERRL - Neck Neck exam general surgery: Present: supple, trachea midline. Absent: lymphadenopathy - Respiratory Respiratory exam: Present: CTAB. Absent: accessory muscle use, rales, rhonchi, wheezes - Cardiovascular Cardiovascular exam: Present: RRR, +S1, +S2. Absent: diastolic murmur, gallop, rubs, systolic murmur - GI/Abdominal GI/Abdominal exam: Present: normal bowel sounds, soft, no peritoneal signs. Absent: distended, tenderness - Extremities Exam Extremities exam: Present: tenderness (On Right hip with limited ROM), warm, radial pulses palpable and symmetrical. Absent: calf tenderness, cyanotic, pedal edema - Neurological Exam Neurological exam: Present: CN II-XII intact, oriented X3, no focal deficits. Absent: pronater drift, facial droop, speech deficit - Skin Skin exam: Present: dry Additional comments: Sacral wound Internal Medicine: Result - Labs CBC & Chem 7: 10/18/17 04:17 10/18/17 04:17 Labs: Short CBC 10/18/17 Range/Units 04:17 WBC 8.1 (4.3-11.1) K/mcL Hgb 10.0 L (11.5-15.4) g/dL Hct 31.6 L (35.3-44.9) % Plt Count 143 (140-400) K/mcL Neutrophils # 6.9 (1.6-8.9) K/mcL BMP 10/18/17 04:17 Sodium 138 Potassium 5.3 H Chloride 110 H Carbon Dioxide 19 L BUN 129 H Creatinine 3.37 H Glucose 106 H Calcium 9.7 - ABG Interpretation ABG results: PT/INR, D-dimer PT 12.4 Seconds (9.4-12.1) H 10/18/17 04:17 - Impressions Impressions Hip X-Ray 10/18/17 11:11 IMPRESSION: 1. Unchanged acute right intertrochanteric fracture. D/ / Camron Aguillon MD / Camron Aguillon MD Interpreting Provider: Camron Aguillon MD Hip CT 10/18/17 12:48 IMPRESSION: Acute nondisplaced right femoral intertrochanteric fracture. D/ / Darren Knight MD / Darren Knight MD Interpreting Provider: Darren Knight MD Consult Discharge Plan - Plan Referrals: Az Rene MD [Primary Care Provider] -
[2017-10-19] MEDS ORDERED: D5% in 0.45% NACL 1,000 ML IVC SCH ×2 (00:01→14:25)
[2017-10-19] MEDS: OXYCODONE Oral CONC 10 MG/0.5 ML ORAL.SYG SL PRN (08:50)
--- NOTE | 2017-10-19 11:02 | Event Note ---
Date of Encounter: 10/19/17 Time of Encounter: 10:[address] Spencer. Plan for Right hip IM nailing today. Discussed the procedure as well as r/b/a with the patient who expressed understanding. All questions were answered and consent obtained/placed in chart.
--- NOTE | 2017-10-19 11:39 | Anesthesia Evaluation PreOp ---
Date of Encounter: 10/19/17 Time of Encounter: 11:35 - Past History Planned Operation: Left TFN Hip Cardiac History: HTN, Hyperlipidemia Pulmonary History: Denies Any Significant HX LOG BUYER History: Denies Any Significant HX Other Medical History: Hepatic (Cirrhosis), Renal (CKD Stage 4) Anesthesia History: No Prior Anesthetic Complications : No Alcohol Use: none Drug use: none Medications and Allergies Calcium Citrate/Vitamin D3 [Calcium Citrate-Vit D3 Tablet] 500 mg PO BID [History] Cholecalciferol (Vitamin D3) [Vitamin D3] 1,000 unit PO DAILY 10/19/15 [History] L.acidoph,Paracasei, B.lactis [Probiotic] 1 cap PO DAILY 10/19/15 [History] Lactose-Reduced Food [Ensure High Protein] 1 bottle PO BID 10/19/15 [History] Levothyroxine [Synthroid] 175 mcg PO DAILY 10/19/15 [History] Melatonin 10 mg PO HS 10/19/15 [History] Multivitamin [Multivitamins] 1 cap PO DAILY 10/19/15 [History] Omeprazole [PriLOSEC] 20 mg PO BID 10/19/15 [History] Paricalcitol [Zemplar] 1 mcg PO DAILY 10/19/15 [History] Sertraline [Zoloft] 100 mg PO BID 10/19/15 [History] Trazodone HCl [TraZODone] 200 mg PO HS 10/19/15 [History] Gabapentin [Neurontin] 300 mg PO BID 08/07/17 [History] Propranolol HCl 40 mg PO BID 08/07/17 [History] Cyanocobalamin (B-12) [Vitamin B12] 1,000 mcg PO DAILY 10/18/17 [History] Duloxetine HCl [Cymbalta] 60 mg PO BID 10/18/17 [History] Tizanidine HCl [Zanaflex] 4 mg PO TID PRN 10/18/17 [History] fentaNYL [Fentanyl] 100 mcg TD Q72H 10/18/17 [History] 3 Allergy/AdvReac Type Severity Reaction Status Date / Time ketorolac [From Toradol] AdvReac See Verified 06/29/17 23:20 Comments NSAIDS (Non-Steroidal AdvReac See Verified 06/29/17 23:20 Anti-Inflamma Comments sulfamethoxazole AdvReac See Verified 06/29/17 23:20 [From Bactrim] Comments trimethoprim [From Bactrim] AdvReac See Verified 06/29/17 23:20 Comments - Meds/Allergy Pre-op Review Medications Reviewed: Yes Allergies Reviewed: Yes Beta Blockers on Current Med List: No Anesthesia Results - Labs 10/18/17 04:17 10/18/17 04:17 Laboratory Tests 02/19/15 07/28/17 10/18/17 15:00 17:09 04:17 Hgb 10.0 L Hct 31.6 L Plt Count 143 PT PTT 30.9 INR Sodium Potassium BUN Creatinine Hemoglobin A1c 4.3 10/18/17 10/18/17 04:17 04:17 Hgb Hct Plt Count PT 12.4 H PTT INR 1.1 Sodium 138 Potassium 5.3 H BUN 129 H Creatinine 3.37 H Hemoglobin A1c - Imaging EKG: pending Anesthesia Exam O2 Sat O2 Sat by Pulse Oximetry 94 O2 Sat by Pulse Oximetry 99 O2 Sat by Pulse Oximetry 97 O2 Sat by Pulse Oximetry 97 O2 Sat by Pulse Oximetry 95 Vital Signs Temp Pulse Resp BP Pulse Ox 98.2 F 73 15 156/79 99 10/18/17 03:48 10/18/17 03:48 10/18/17 03:48 10/18/17 03:48 10/18/17 03:48 Height: 5'2 Weight: 119 lbs NPO (# of Hours): MN Pain Scale: 1 - HEENT Pupil (Motor): Pupils equal, EOMI Mallampati: III Oral Opening: Less than or equal to 3 - LOG BUYER LOC: Oriented LOG BUYER Motor: Normal RUE, Normal LUE, Normal RLE, Normal LLE, Normal Face LOG BUYER Sensory: Normal: RUE, LUE, Face, Deficit: RLE, LLE - Cardiac Rhythm: Regular Murmur: None JVD: No Carotid Bruit: No - Pulmonary Breath Sounds: bilateral Clear Respiratory Effort: Symmetrical Anesthesia Assess/Plan ASA Score: 3 (Cirrhosis CKD) Modified Antony Scale for Level of Consciousness: Cooperative, oriented, and tranquil Anesthetic Plan: General Monitoring Plan: Standard Monitors Recovery Plan: PACU (Discussed GA, agrees to proceed)
[2017-10-19] MEDS ORDERED: Albuterol 2.5 MG/3 ML NEBULIZER ONE (11:46)
[2017-10-19] MEDS ORDERED: Ondansetron 4 MG/2 ML VIAL ONE (11:49)
[2017-10-19] MEDS ORDERED: Lidocaine -MPF 2% 2 ML VIAL ONE (11:49)
[2017-10-19] MEDS ORDERED: Dexamethasone 4 MG/ML VIAL ONE (11:49)
[2017-10-19] MEDS ORDERED: *HR* Propofol 200 MG/20 ML VIAL IVP ONE (11:49)
[2017-10-19] MEDS ORDERED: *HR* FentaNYL (PF) 100 MCG/2 ML VIAL ONE (11:58)
[2017-10-19] MEDS ORDERED: *HR* OxyCODONE Immed Rel 5 MG TABLET PO PRN (12:38)
[2017-10-19] MEDS ORDERED: *HR* Promethazine 25 MG/ML VIAL IVP PRN (12:38)
[2017-10-19] MEDS ORDERED: Gentamicin Oint 15 GM TUBE TP SCH (13:00)
[2017-10-19] MEDS: MORPHINE SUL Oral CONC 10 MG/0.5 ML ORAL.SYG SL PRN ×2 (14:00→14:10)
--- NOTE | 2017-10-19 14:07 | Anesthesia Evaluation Post Op ---
Date of Encounter: 10/19/17 Time of Encounter: 14:15 - Vital Signs Vital Signs: Vital Signs/O2 Sat/Glucose, Most Current Temp Pulse Resp BP Pulse Ox 10/19/17 13:41 68 16 165/90 100 10/19/17 13:31 68 16 160/83 100 10/19/17 13:21 97.1 F L 73 14 148/85 100 10/19/17 11:52 18 146/83 94 10/19/17 11:18 97.9 F 75 18 146/83 94 - Lungs Lungs: Clear Ascult./Percussion - Airway Airway: Non-obstructed - Cardiovascular Regular Rate - Mental Status Mental Status: Alert & Oriented, Answers Appropriately - Pain Pain Scale: 2 - Nausea Vomiting Nausea Vomiting: Not Present - Hydration Hydration: Ice chips - Discharge PostOp Status: Transfer Patient to floor
--- NOTE | 2017-10-19 14:20 | Operative Note ---
Date of procedure: 10/19/17 Pre-op diagnosis: Right hip intertrochanteric fracture, closed Post-op diagnosis: same Procedure: Right hip intramedullary nailing Implants: Synthes TFN Anesthesia: RUYA Surgeon: Frankie Spencer Was there an stonecutter assistant present: No Estimated blood loss (cc): 150 Specimen: 0 Condition: stable Disposition: PACU Procedure in Detail: The patient received IV antibiotics in the holding area. She was brought to the operating room, sign in was performed. The patient underwent general anesthesia on the hospital bed. She was then transferred to the fracture table in supine position. The patient was positioned with the support groin post, the affected right lower extremity in the traction zhang and the contralateral lower extremity in a well-padded limb zhang with a hip flexed and abducted out of the way. Fluoroscopy was then brought in, the fractures visualized, and the fracture reduced. We checked on AP and true lateral view of the hip. Once satisfactory the right hip, from the pelvis down to the knee, was prepped and draped in usual sterile fashion. A timeout was performed. The level of the greater trochanter was palpated, a 4-5 cm oblique incision was made just proximally, , followed by Bovie dissection. The hip abductor was sharply split in line with its fibers with a curved Emmanuel scissors. The tip of the greater trochanter was palpable. A curved awl was then positioned on the tip. Its position was checked on fluoroscopy, slightly advanced, and we checked the lateral view. Once appropriately positioned, the aggressive awl was then used to open the proximal femur down to level of the lesser trochanter. A short Trochanteric Femoral Nail Advanced with 125 degree neck angle, 11 mm diameter, was assembled, and appropriately inserted into the proximal femur. The appropriate level was checked under fluoroscopy. The triple trochars of 130 degree neck angle was then positioned against the skin, checking fluoroscopy for positioning. Once satisfactory a 2.5 cm incision was made, the fascia was bluntly split along with the muscle fibers of the vastus lateralis. The triple trocar was advanced up against the lateral cortex. The guidepin was then driven up into the femoral head, checking AP and lateral views. The wire was adjusted as needed. A 85 mm long helical blade was chosen. Overdrilled the guidewire, and the helical blade was tapped in place over the guidewire in standard technique. Once close to the edge of the femoral head, the setscrew was then screwed down. Traction was then taken off the leg, and the fracture compressed. The triple trochars for the distal static locking screw were placed in the jig, a 1 cm longitudinal incision was made. The trochars were advanced to the cortex , and drilled across. The depth was measured and a 34 mm long by 5 mm bicortical screw was placed. All trochars and jig were removed. Final fluoroscopy shots were taken and saved showing good AP and lateral views of the hip and also distally at the tip of the nail. The wounds were irrigated with normal saline. Fascia over the abductors was closed with 0 Vicryl [id number] stitches, including the deep subcutaneous fat layer. Subcutaneous tissues were closed with 2-0 Vicryl, and the skin incisions were closed with ernestina. Sterile dressings were applied. The patient was transferred to hospital bed where she was extubated and taken to recovery room in stable condition.
[2017-10-19] MEDS ORDERED: Naloxone 0.4 MG/ML INJ IVP PRN ×3 (14:25)
[2017-10-19] MEDS ORDERED: Ondansetron 4 MG/2 ML VIAL IVP PRN ×2 (14:25)
[2017-10-19] MEDS ORDERED: Sennosides 8.6 MG TABLET PO PRN (14:25)
[2017-10-19] MEDS: *HR* OxyCODONE/APAP 5/325 TABLET PO PRN (15:08)
[2017-10-19] MEDS: *HR* Enoxaparin 30 MG/0.3 ML SYRINGE SQ SCH (15:42)
[2017-10-19] MEDS: CeFAZolin Premix DUPLEX 2,000 MG/50 ML BAG IVPB SCH (15:42)
[2017-10-19] MEDS: traMADol 50 MG TABLET PO PRN (16:34)
--- NOTE | 2017-10-19 16:37 | Electrocardiograph Report ---
[address] [place] [address] Test Date: 2017-10-19 Pat Name: Helen Taylor Department: 106 Room: [facility] Gender: F Head Of Business Development: DIONI : 1955 Requested By: Onesimo Donahue Order Number: [id number] Reading MD: Pippa Whitlock Measurements Intervals [place] Rate: 74 P: 87 AK: 121 QRS: 50 QRSD: 82 T: 66 QT: 367 QTc: 395 Interpretive Statements SINUS RHYTHM POSSIBLE LEFT ATRIAL ENLARGEMENT Electronically Signed On 10-19-2017 16:36:04 EST by Pippa Whitlock
[2017-10-19] MEDS ORDERED: NON-FORMULARY MEDICATION 1 EACH EACH (Lactose-Reduced Food [Ensure High Protein] 1 BOTTLE) PO SCH (21:00)
[2017-10-19] MEDS: Gabapentin 300 MG CAPSULE PO SCH (21:25)
[2017-10-20] MEDS: CeFAZolin Premix DUPLEX 2,000 MG/50 ML BAG IVPB SCH (00:15)
[2017-10-20] MEDS: *HR* OxyCODONE/APAP 5/325 TABLET PO PRN ×4 (00:21→15:01)
[2017-10-20] MEDS ORDERED: *HR* FentaNYL PATCH 100 MCG PATCH TD SCH (04:00)
[2017-10-20] MEDS: Gentamicin Oint 15 GM TUBE TP SCH (07:40)
[2017-10-20] MEDS: Gabapentin 300 MG CAPSULE PO SCH ×2 (08:54→23:07)
[2017-10-20] MEDS: Cyanocobalamin (B-12) 1,000 MCG TABLET PO SCH (08:54)
[2017-10-20] MEDS: Multivit/Ca/Min/Fe/FA 1 TAB TABLET PO SCH (08:54)
[2017-10-20] MEDS: Lactobacillus 1 EACH CAP.SPRINK PO SCH (08:54)
[2017-10-20] MEDS: Cholecalciferol (D-3) 1,000 UNIT TABLET PO SCH (08:54)
[2017-10-20 11:51] LABS: Calcium 8.4 mg/dL (8.6-10.3); Potassium 4.1 mEq/L (3.5-5.1)
[2017-10-20 11:55] LABS: Basophils % 0.1 %; Eosinophils % 0.4 %; Immature Granulocytes % 0.3 % (0-4); Lymphocytes # 1.1 K/mcL (0.6-4.6); Lymphocytes % 12.5 %; Mean Corpuscular HGB Conc 31.3 g/dL (31.6-35.5); Mean Corpuscular Hemoglobin 30.7 pg (28.0-33.3); Mean Corpuscular Volume 98.4 fL (83.0-100.0); Mean Platelet Volume 11.1 fL (9.4-12.4); Monocytes # 0.6 K/mcL (0.0-1.3); Monocytes % 7.1 %; Neutrophils # 7.2 K/mcL (1.6-8.9); Platelet Count 145 K/mcL (140-400); Red Blood Count 2.44 M/mcL (3.82-4.97); Red Cell Distribution Width 16.1 % (11.5-14.5); Segmented Neutrophils % 79.6 %
[2017-10-20 11:57] LABS: Hemoglobin 7.5 g/dL (11.5-15.4)
--- NOTE | 2017-10-20 12:15 | Orthopedics Progress Note ---
Date of Encounter: 10/20/17 Time of Encounter: 11:50 - Assessment and Plan (1) Closed right hip fracture Current Visit: Yes Status: Acute POD#1 s/p right hip IM nailing 10/19/17 dressings to be changed before discharge. Continue with therapy, WBAT Ice to right hip as needed. DVT prophylaxis and pain control per hospitalist. Follow up with Dorinda Cruz PA-C in [facility] office at POW#2. Qualifiers: Encounter type: initial encounter Qualified Code(s): S72.001A - Fracture of unspecified part of neck of right femur, initial encounter for closed fracture Subjective Principal diagnosis: POD#1 s/p right hip IM nailing 10/19/17 Interval history: Patient doing well this morning with no concerns. No events overnight. States pain is tolerable currently. She participated in therapy this morning. Denies drainage from incision or calf pain. Objective Vital signs: Vital Signs Temp Pulse Resp BP Pulse Ox 10/20/17 10:48 98.3 F 77 16 146/85 100 10/20/17 08:58 94 10/20/17 06:14 98.2 F 76 18 150/80 94 10/20/17 03:31 98.7 F 70 18 141/82 96 10/19/17 22:28 97.9 F 70 18 161/86 100 10/19/17 20:05 98.5 F 78 18 150/80 98 10/19/17 16:29 98.6 F 79 16 161/79 98 10/19/17 15:38 98.0 F 78 16 169/89 100 10/19/17 15:00 97.6 F 81 16 157/82 96 10/19/17 14:33 97.8 F 75 18 143/83 99 10/19/17 14:21 97.2 F L 73 16 164/88 99 10/19/17 14:11 74 16 179/89 99 10/19/17 14:01 72 16 176/89 99 10/19/17 13:51 97.3 F L 73 16 175/85 99 10/19/17 13:41 68 16 165/90 100 10/19/17 13:31 68 16 160/83 100 10/19/17 13:21 97.1 F L 73 14 148/85 100 Intake and Output 10/19/17 10/20/17 10/20/17 23:59 07:59 15:59 Intake Total 450 / 450 200 / 200 Output Total 325 / 325 525 / 525 Balance 125 / 125 -325 / -325 Intake: IV Fluids 50 / 50 Ancef Premix DUPLEX 2,000 mg In 50 / 50 50 ml @ 100 mls/hr IVPB Q8HR [facility] Rx#:[id number] Oral 400 / 400 200 / 200 Output: Urine 325 / 325 Catheter 325 / 325 200 / 200 Other: Meal Dinner Percent of Meal Consumed 25% Blood Glucose* 279 99 226 Incision: clean and dry (dressings c/d/i with no visible drainage or surrounding erythema. no calf tenderness, good dorsiflexion of foot, grossly NV intact) - Labs CBC & BMP: 10/20/17 10:56 10/20/17 10:56 Labs: Abnormal lab results RBC 2.44 M/mcL (3.82-4.97) L 10/20/17 10:56 Hgb 7.5 g/dL (11.5-15.4) L D 10/20/17 10:56 Hct 24.0 % (35.3-44.9) L 10/20/17 10:56 MCHC 31.3 g/dL (31.6-35.5) L 10/20/17 10:56 RDW 16.1 % (11.5-14.5) H 10/20/17 10:56 PT 12.4 Seconds (9.4-12.1) H 10/18/17 04:17 Sodium 135 mEq/L (136-145) L 10/20/17 10:56 Carbon Dioxide 20 mEq/L (23-29) L 10/20/17 10:56 BUN 109 mg/dL (8-23) H 10/20/17 10:56 Creatinine 3.27 mg/dL (0.60-1.20) H 10/20/17 10:56 Est GFR ( Amer) 17 (> 60) L 10/20/17 10:56 Est GFR (Non-Af Amer) 14 (> 60) L 10/20/17 10:56 BUN/Creatinine Ratio 33 (6-26) H 10/20/17 10:56 Glucose 176 mg/dL (70-105) H 10/20/17 10:56 POC Glucose 226 (58-89) H 10/20/17 10:51 Calculated Osmolality 319 (280-300) H 10/20/17 10:56 Calcium 8.4 mg/dL (8.6-10.3) L 10/20/17 10:56 - VTE Documentation of Mechanical Device: Venous foot pump, device Consult Discharge Plan - Plan Referrals: Az Rene MD [Primary Care Provider] -
[2017-10-20] MEDS ORDERED: D5% in Water 1,000 ML IVC PRN (13:59)
[2017-10-20] MEDS ORDERED: Dextrose Gel 15 GM/37.5 ML TUBE PO PRN ×2 (13:59)
[2017-10-20] MEDS ORDERED: *HR* Dextrose 50 % in Water (Syg) 50 ML SYRINGE IVP PRN (13:59)
[2017-10-20] MEDS: *HR* Enoxaparin 30 MG/0.3 ML SYRINGE SQ SCH (15:01)
[2017-10-20] MEDS ORDERED: 0.9 % Sodium Chloride 250 ML ONE (15:28)
[2017-10-20] MEDS: Insulin LISPRO 300 UNITS/3 ML VIAL SQ SCH (16:36)
--- NOTE | 2017-10-20 17:42 | Internal Med Progress Note ---
Date of Encounter: 10/20/17 Time of Encounter: 14:35 - Assessment and plan (1) Closed right hip fracture Current Visit: Yes Status: Acute Assessment and plan: Hip fracture status post mechanical fall. CT hip showed acute nondisplaced right femoral intertrochanteric fracture. Orthopedic surgery has been consulted , patient underwent intramedullary nailing, postoperative day 1. Noted to have blood loss anemia, hemoglobin 7.5 today. We will transfuse 2 units PRBC and monitor hemoglobin. Continue pain control with fentanyl patch, oral Percocet and tramadol. Physical and occupational therapy evaluation noted, recommend inpatient rehabilitation. immigration services officer on board, working on the same. Qualifiers: Encounter type: initial encounter Qualified Code(s): S72.001A - Fracture of unspecified part of neck of right femur, initial encounter for closed fracture (2) Essential hypertension Current Visit: Yes Status: Chronic Assessment and plan: Blood pressure noted to be elevated but patient is not on home medications, likely secondary to pain, will continue to monitor for now. (3) Osteoporosis Current Visit: Yes Status: Chronic Assessment and plan: Continue calcium and vitamin D supplements. Qualifiers: Osteoporosis type: unspecified Presence of current pathological fracture: unspecified Qualified Code(s): M81.0 - Age-related osteoporosis without current pathological fracture (4) CKD (chronic kidney disease) stage 4, GFR 15-29 ml/min Current Visit: Yes Status: Chronic Assessment and plan: Serum creatinine noted to be around baseline, 3.27 today. Avoid nephrotoxic agents. (5) Cirrhosis Current Visit: Yes Status: Chronic Qualifiers: Hepatic cirrhosis type: unspecified hepatic cirrhosis Ascites presence: without ascites Qualified Code(s): K74.60 - Unspecified cirrhosis of liver (6) Hypothyroid Current Visit: Yes Status: Chronic Assessment and plan: Continue levothyroxine. Qualifiers: Hypothyroidism type: unspecified Qualified Code(s): E03.9 - Hypothyroidism , unspecified (7) Sacral decubitus ulcer, stage IV Current Visit: Yes Status: Chronic Assessment and plan: Present on admission. Continue local wound care, frequent repositioning. (8) Diabetes mellitus Current Visit: Yes Status: Acute Assessment and plan: Suspected. Patient reports she carries no diagnosis of diabetes, not noted to be on home medications. Continue Accu-Chek blood glucose monitoring with sliding scale insulin. Check hemoglobin A1c. Qualifiers: Diabetes mellitus type: type 2 Diabetes mellitus complication status: with unspecified complications Diabetes mellitus penitentiary insulin use: without penitentiary use Qualified Code(s): E11.8 - Type 2 diabetes mellitus with unspecified complications - Subjective Interval history: Patient is noted to be irritable, does not want to participate in a conversation. Reports severe right hip pain, able to participate with physical therapy but with significant pain. Reports constipation. No nausea, vomiting, chest pain or shortness of breath. - Constitutional Vitals: Temp Pulse Resp BP Pulse Ox 8.5 F L 71 16 149/91 98 10/20/17 16:18 10/20/17 16:18 10/20/17 16:18 10/20/17 16:18 10/20/17 16:18 General appearance: Present: mild distress, A&O X 3, answers questions appropriately - Respiratory Respiratory exam: Present: CTAB. Absent: accessory muscle use, rales, rhonchi, wheezes - Cardiovascular Cardiovascular exam: Present: RRR, +S1, +S2. Absent: diastolic murmur, gallop, rubs, systolic murmur - GI/Abdominal GI/Abdominal exam: Present: normal bowel sounds, soft, no peritoneal signs. Absent: distended, tenderness - Extremities Exam Extremities exam: Present: full ROM (Restricted range of motion in right hip), tenderness (Right hip in ice packs, tender to light palpation.), warm, radial pulses palpable and symmetrical. Absent: calf tenderness, cyanotic, pedal edema - Neurological Exam Neurological exam: Present: CN II-XII intact, oriented X3, no focal deficits. Absent: pronater drift, facial droop, speech deficit Internal Medicine: Result - Labs CBC & Chem 7: 10/21/17 06:14 10/20/17 10:56 Labs: Short CBC 10/20/17 Range/Units 10:56 WBC 9.0 (4.3-11.1) K/mcL Hgb 7.5 L D (11.5-15.4) g/dL Hct 24.0 L (35.3-44.9) % Plt Count 145 (140-400) K/mcL Neutrophils # 7.2 (1.6-8.9) K/mcL BMP 10/20/17 10:56 Sodium 135 L Potassium 4.1 Chloride 105 Carbon Dioxide 20 L BUN 109 H Creatinine 3.27 H Glucose 176 H Calcium 8.4 L - ABG Interpretation ABG results: PT/INR, D-dimer PT 12.4 Seconds (9.4-12.1) H 10/18/17 04:17 - VTE Documentation of Mechanical Device: Venous foot pump, device Consult Discharge Plan - Plan Additional Instructions: F/up with [facility] in 2 weeks F/up with PCP in 1-2 weeks Referrals: Az Rene MD [Primary Care Provider] - Prescriptions: OxyCODONE/APAP 5/325 [Percocet 5/325 MG] 1 each PO Q4HR PRN 2 Days #15 tablet PRN Reason: Severe Pain>7
[2017-10-20] MEDS ORDERED: 0.9 % Sodium Chloride 500 ML ONE (23:19)
[2017-10-21] MEDS: *HR* OxyCODONE/APAP 5/325 TABLET PO PRN ×4 (00:21→21:39)
[2017-10-21 06:32] LABS: Basophils % 0.2 %; Eosinophils # 0.1 K/mcL (0.0-0.6); Eosinophils % 1.5 %; Hematocrit 31.4 % (35.3-44.9); Immature Granulocytes % 0.6 % (0-4); Lymphocytes # 1.2 K/mcL (0.6-4.6); Lymphocytes % 18.7 %; Mean Corpuscular HGB Conc 31.5 g/dL (31.6-35.5); Mean Corpuscular Hemoglobin 29.2 pg (28.0-33.3); Mean Corpuscular Volume 92.6 fL (83.0-100.0); Mean Platelet Volume 10.8 fL (9.4-12.4); Monocytes # 0.5 K/mcL (0.0-1.3); Monocytes % 8.1 %; Neutrophils # 4.6 K/mcL (1.6-8.9); Platelet Count 127 K/mcL (140-400); Red Blood Count 3.39 M/mcL (3.82-4.97); Red Cell Distribution Width 17.2 % (11.5-14.5); Segmented Neutrophils % 70.9 %
[2017-10-21 06:38] LABS: Hemoglobin 9.9 g/dL (11.5-15.4)
[2017-10-21] MEDS: Multivit/Ca/Min/Fe/FA 1 TAB TABLET PO SCH (08:37)
[2017-10-21] MEDS: Cyanocobalamin (B-12) 1,000 MCG TABLET PO SCH (08:37)
[2017-10-21] MEDS: Gabapentin 300 MG CAPSULE PO SCH (08:37)
[2017-10-21] MEDS: Lactobacillus 1 EACH CAP.SPRINK PO SCH (08:37)
[2017-10-21] MEDS: Cholecalciferol (D-3) 1,000 UNIT TABLET PO SCH (08:37)
[2017-10-21] MEDS: Insulin LISPRO 300 UNITS/3 ML VIAL SQ SCH ×3 (10:26→16:25)
[2017-10-21] MEDS: Gentamicin Oint 15 GM TUBE TP SCH ×2 (10:27→15:35)
[2017-10-21] MEDS: traMADol 50 MG TABLET PO PRN (11:34)
[2017-10-21] MEDS ORDERED: amLODIPine 5 MG TABLET PO SCH (13:15)
--- NOTE | 2017-10-21 13:45 | Discharge Summary ---
Date of Encounter: 10/21/17 Time of Encounter: 13:44 - Discharge Diagnosis (1) Closed right hip fracture Priority: Primary Status: Acute Qualifiers: Encounter type: initial encounter Qualified Code(s): S72.001A - Fracture of unspecified part of neck of right femur, initial encounter for closed fracture (2) Osteoporosis Priority: Secondary Status: Chronic Qualifiers: Osteoporosis type: unspecified Presence of current pathological fracture: unspecified Qualified Code(s): M81.0 - Age-related osteoporosis without current pathological fracture (3) CKD (chronic kidney disease) Priority: Secondary Status: Chronic Qualifiers: Chronic kidney disease stage: stage 4 (severe) Qualified Code(s): N18.4 - Chronic kidney disease, stage 4 (severe) (4) Cirrhosis Priority: Secondary Status: Chronic Qualifiers: Hepatic cirrhosis type: unspecified hepatic cirrhosis Ascites presence: without ascites Qualified Code(s): K74.60 - Unspecified cirrhosis of liver (5) Hypothyroid Priority: Secondary Status: Chronic Qualifiers: Hypothyroidism type: unspecified Qualified Code(s): E03.9 - Hypothyroidism , unspecified (6) Sacral decubitus ulcer, stage IV Priority: Secondary Status: Chronic - Discharge Medications Prescriptions: OxyCODONE/APAP 5/325 [Percocet 5/325 MG] 1 each PO Q4HR PRN 2 Days #15 tablet PRN Reason: Severe Pain>7 Home Medications: Calcium Citrate/Vitamin D3 [Calcium Citrate-Vit D3 Tablet] 500 mg PO BID [History] Cholecalciferol (Vitamin D3) [Vitamin D3] 1,000 unit PO DAILY 10/19/15 [History] L.acidoph,Paracasei, B.lactis [Probiotic] 1 cap PO DAILY 10/19/15 [History] Lactose-Reduced Food [Ensure High Protein] 1 bottle PO BID 10/19/15 [History] Levothyroxine [Synthroid] 175 mcg PO DAILY 10/19/15 [History] Melatonin 10 mg PO HS 10/19/15 [History] Multivitamin [Multivitamins] 1 cap PO DAILY 10/19/15 [History] Omeprazole [PriLOSEC] 20 mg PO BID 10/19/15 [History] Paricalcitol [Zemplar] 1 mcg PO DAILY 10/19/15 [History] Sertraline [Zoloft] 100 mg PO BID 10/19/15 [History] Trazodone HCl [TraZODone] 200 mg PO HS 10/19/15 [History] Propranolol HCl 40 mg PO BID 08/07/17 [History] Cyanocobalamin (B-12) [Vitamin B12] 1,000 mcg PO DAILY 10/18/17 [History] Duloxetine HCl [Cymbalta] 60 mg PO BID 10/18/17 [History] Tizanidine HCl [Zanaflex] 4 mg PO TID PRN 10/18/17 [History] Collagenase Oint [Santyl] 1 appl TP DAILY tube 10/21/17 [Rx] Docusate [Colace] 100 mg PO BID capsule 10/21/17 [Rx] Gabapentin [Neurontin] 300 mg PO BID #10 10/21/17 [Rx] Gentamicin Oint [Garamycin] 1 appl TP DAILY tube 10/21/17 [Rx] OxyCODONE/APAP 5/325 [Percocet 5/325 MG] 1 each PO Q4HR PRN 2 Days #15 tablet [Rx] fentaNYL [Fentanyl] 100 mcg TD Q72H 6 Days #2 10/21/17 [Rx] Allergies/Adverse Reactions: 3 Allergy/AdvReac Type Severity Reaction Status Date / Time ketorolac [From Toradol] AdvReac See Verified 06/29/17 23:20 Comments NSAIDS (Non-Steroidal AdvReac See Verified 06/29/17 23:20 Anti-Inflamma Comments sulfamethoxazole AdvReac See Verified 06/29/17 23:20 [From Bactrim] Comments trimethoprim [From Bactrim] AdvReac See Verified 06/29/17 23:20 Comments Procedures/tests Complete & Pending: Procedures Performed prior 72 hours Category Date Time Status CT hip RT wo con [CT] Stat Cat Scan 10/18/17 12:48 Completed ECG 12 lead ECG [ECG] Routine Y 10/19/17 11:41 Completed Date of admission: 10/18/17 01:41 Primary care physician: Az Rene MD Consults: 10/18/17 03:18 Consult to Wound Care [CONS] Routine Reason for Consult: Sacral wound Call Completed: No 10/19/17 14:25 Consult to Occupational Therapy [CONS] Routine Comment: Evaluate, develop and implement POC Reason for Consult: post hip surgery Consult to Orthopedic Navigator [CONS] [CONS] Routine Consult to Physical Therapy [CONS] Routine Comment: Evaluate, develop and implement POC Reason for Consult: post hip surgery Consult to [facility] [CONS] Routine Reason for SW Consult: post -op hip fracture RT Post Op Consult [CONS] Routine Discharging clinician: Nina Oliveira Anticipated date of discharge: 10/21/17 - Patient Status Disposition: Transfer Intermediate Care Fac Condition: Fair Functional capacity at discharge: uses cane/walker Overall status at discharge: patient is progressing back to baseline - Discharge Instructions Follow Up With: Dorinda Cruz PAC [Physician Licensing Court Magistrate] - 11/02/17 10:30 am Az Rene MD [Primary Care Provider] - Additional Instructions: Discharge Instructions: Total Hip Replacement Please call [facility] ([phone]), your Primary Care Physician, or report to the Emergency Room if you have any of the following symptoms: Nausea, vomiting, fever greater that 101.5, swelling, chest pain, shortness of breath, increased pain/redness/drainage/odor for your incision site, numbness/ tingling, or any other concerning symptoms. ACTIVITY:Weight-bearing as tolerated for 8 weeks with hip dislocation precautions that physical therapy taught you. You may progress as tolerated under the guidance of your physical therapist. You do not need to sleep with a pillow between your legs. You can also seep on the operative side or on your stomach. MEDICATIONS: Upon discharge resume your home medications. Take all the medications as prescribed. Take a stool softener if taking narcotic pain medications. Stool softeners are only effective if you drink enough fluids. Drink 6-8 glass of water or fluids a day, unless this is not allowed for another health problem. Despite using stool softeners, if you haven't had a bowel movement in 3 days, please switch to a gentle laxative. Gentle laxatives are sold over the counter. You should have a bowel movement within 24 hours, if not call the office. You will be discharged from the hospital with a prescription for pain medication. You are encouraged to decrease the use of narcotic pain medication as tolerated. Should you require a refill, please call the office. [facility] prescribes narcotic pain medication for only 4-6 weeks after surgery. If you require pain medication beyond this time period, you may be referred to your Primary Care Physician or to the Pain Clinic for further evaluation. Plan ahead for refills on pain medication as many narcotics either need to be picked up at the office or mailed. It is best to call 48-72 hours in advance of needing a prescription refill so you don't run out of medication. To help control the post-operative pain, you may take NSAIDs (Aleve,Advil, Motrin, ibuprofen, naprosyn) or Tylenol as prescribed on the bottle in addition to the pain medication. ANTICOAGULATION (blood thinners): Continue your Aspirin, Lovenox or Coumadin as prescribed to help prevent a blood clot in the leg or in the lungs. As long as your incision remains dry and you tolerate the NSAIDs (Aleve, Advil, Motrin, Ibuprofen, Naprosyn), it is OK to use the NSAIDS while you are taking your anticoagulation medication. Should your incision start to drain, stop the NSAID and contact our office. Common symptoms of blood clot in the legs include: localized pain, swelling, calf tenderness, redness or discoloration of the skin. Blood clot in the lung symptoms include: shortness of breath, rapid pulse, sweating, and chest pain that worsens with deep breathing, coughing up blood, lightheadedness, feelings of anxiety. If you experience any of these symptoms notify your physician immediately, go to the emergency room, or if having trouble breathing, call 911. WOUND CARE: Wound care per orders. Do not get the dressing wet at anytime. Wash your hands with antibacterial soap, rinse and dry prior to any wound care. If you have ernestina the visiting nurse or rehab facility can remove the stapes 10-14 days after surgery and place steri-strips across the wound. Leave the steri-strips in place until they fall off on their own. You may let water from the shower run on top of the steri-strips. If you do not have a visiting nurse or rehab facility, you will need to return to the office at 10-14 days for the ernestina to be removed. If you have itching or redness around the dressing call the office. FOLLOW-UP: Please follow up with your surgeon in the orthopedic clinic in 6 weeks from the day of surgery. If you have ernestina that need to be removed, you will need to come back to the office in 10-14 days from the day of surgery. F/up with [facility] in 2 weeks - KATY Hodgson. F/up with PCP in 1-2 weeks - Diet and Activity Activity: ambulate only with your walker, as per physical therapy Diet: low fat, low cholesterol, low salt diet, other (renal diet) Hospital course: Ms. Taylor is a 61 year old female with the above medical problems who was admitted with right hip pain after a mechanical fall. Right hip x-ray showed an acute right intertrochanteric fracture. Orthopedic surgery was consulted and patient underwent right hip intramedullary nailing on 10/19/2017. Patient did well postoperatively, she was noted to have some acute blood loss anemia with hemoglobin dropped to 7.5, improved after receiving 2 units PRBC transfusion. Pain was controlled with oral narcotic analgesics. Physical and occupational therapy evaluation was completed and recommended inpatient rehabilitation placement. Patient is being discharged to rehabilitation facility in a stable condition. DVT prophylaxis is being continued with subcutaneous Lovenox 30 mg daily for 3 weeks, the prescription for which has been faxed to the correction and could not be completed during medication reconciliation due to technical difficulties. Plan of care was explained to the patient's , on the phone, he verbalized understanding. - Time Spent with Patient Total time spent providing and/or coordinating discharge services: Greater than 30 minutes (45 min) - Constitutional Vitals: Temp Pulse Resp BP Pulse Ox 98.4 F 71 16 167/89 100 10/21/17 11:22 10/21/17 11:22 10/21/17 11:22 10/21/17 11:22 10/21/17 11:22 General appearance: Present: mild distress, A&O X 3, answers questions appropriately - Cardiovascular Cardiovascular exam: Present: RRR, +S1, +S2. Absent: diastolic murmur, gallop, rubs, systolic murmur - VTE Documentation of Mechanical Device: Venous foot pump, device
--- NOTE | 2017-10-21 13:55 | Physician Discharge Referral ---
ExtendedCare Referral Info Provider in Charge: Nina Oliveira Provider in Charge after Transfer: PCP Institutional Level of Care: Intermediate - Diagnosis (1) Closed right hip fracture Priority: Primary Status: Acute (2) Osteoporosis Priority: Secondary Status: Chronic (3) CKD (chronic kidney disease) Priority: Secondary Status: Chronic (4) Cirrhosis Priority: Secondary Status: Chronic (5) Hypothyroid Priority: Secondary Status: Chronic (6) Sacral decubitus ulcer, stage IV Priority: Secondary Status: Chronic (7) Essential hypertension Priority: Secondary Status: Chronic Expected Duration of Placement: 2 weeks Prognosis: Good Aware of Diagnosis: Patient Aware of Prognosis: Patient - Transfer Medications Prescriptions: OxyCODONE/APAP 5/325 [Percocet 5/325 MG] 1 each PO Q4HR PRN 2 Days #15 tablet PRN Reason: Severe Pain>7 Home Medications: Calcium Citrate/Vitamin D3 [Calcium Citrate-Vit D3 Tablet] 500 mg PO BID [History] Cholecalciferol (Vitamin D3) [Vitamin D3] 1,000 unit PO DAILY 10/19/15 [History] L.acidoph,Paracasei, B.lactis [Probiotic] 1 cap PO DAILY 10/19/15 [History] Lactose-Reduced Food [Ensure High Protein] 1 bottle PO BID 10/19/15 [History] Levothyroxine [Synthroid] 175 mcg PO DAILY 10/19/15 [History] Melatonin 10 mg PO HS 10/19/15 [History] Multivitamin [Multivitamins] 1 cap PO DAILY 10/19/15 [History] Omeprazole [PriLOSEC] 20 mg PO BID 10/19/15 [History] Paricalcitol [Zemplar] 1 mcg PO DAILY 10/19/15 [History] Sertraline [Zoloft] 100 mg PO BID 10/19/15 [History] Trazodone HCl [TraZODone] 200 mg PO HS 10/19/15 [History] Propranolol HCl 40 mg PO BID 08/07/17 [History] Cyanocobalamin (B-12) [Vitamin B12] 1,000 mcg PO DAILY 10/18/17 [History] Duloxetine HCl [Cymbalta] 60 mg PO BID 10/18/17 [History] Tizanidine HCl [Zanaflex] 4 mg PO TID PRN 10/18/17 [History] Collagenase Oint [Santyl] 1 appl TP DAILY tube 10/21/17 [Rx] Docusate [Colace] 100 mg PO BID capsule 10/21/17 [Rx] Gabapentin [Neurontin] 300 mg PO BID #10 10/21/17 [Rx] Gentamicin Oint [Garamycin] 1 appl TP DAILY tube 10/21/17 [Rx] OxyCODONE/APAP 5/325 [Percocet 5/325 MG] 1 each PO Q4HR PRN 2 Days #15 tablet [Rx] fentaNYL [Fentanyl] 100 mcg TD Q72H 6 Days #2 10/21/17 [Rx] Allergies/Adverse Reactions: 3 Allergy/AdvReac Type Severity Reaction Status Date / Time ketorolac [From Toradol] AdvReac See Verified 06/29/17 23:20 Comments NSAIDS (Non-Steroidal AdvReac See Verified 06/29/17 23:20 Anti-Inflamma Comments sulfamethoxazole AdvReac See Verified 06/29/17 23:20 [From Bactrim] Comments trimethoprim [From Bactrim] AdvReac See Verified 06/29/17 23:20 Comments - Respiratory Orders Smoking Cessation: Smoking cessation has been advised. For more information, call the [place] Tobacco Quit Line at 3-856-NCAE-NOW. - Advance Directives Code Status: Full Code - Mobility Orders Ambulate - Rehabiliation Orders Rehab Potential: Fair Rehab Orders: ROM Exercises, Evaluation for Physical Therapy, Evaluation for Occupational Therapy - Diet Orders Renal, Cardiac CERTIFICATION: I certify that the transfer of the above named patient to an Extended Care Facility is necessary for the continuing treatment of the diagnosis listed. The above information is true and accurate reflection of patient's current condition. Confidential - Redisclosure prohibited without a patient's written consent.
--- NOTE | 2017-10-21 15:39 | Orthopedics Progress Note ---
Date of Encounter: 10/21/17 Time of Encounter: 12:15 - Assessment and Plan (1) Closed right hip fracture Current Visit: Yes Status: Acute POD#2 s/p right hip IM nailing 10/19/17 dressings to be changed before discharge. Continue with therapy, WBAT Ice to right hip as needed. DVT prophylaxis and pain control per hospitalist. Plan for DC to ECF ([facility]) possibly today. Follow up with Dorinda Cruz PA-C in [facility] office at [facility]. Qualifiers: Encounter type: initial encounter Qualified Code(s): S72.001A - Fracture of unspecified part of neck of right femur, initial encounter for closed fracture Subjective Principal diagnosis: POD#2 s/p right hip IM nailing 10/19/17 Interval history: Patient doing well this morning with no concerns. No events overnight. States pain is tolerable currently. She participated in therapy this morning. Denies drainage from incision or calf pain. Objective Vital signs: Vital Signs Temp Pulse Resp BP Pulse Ox 10/21/17 11:22 98.4 F 71 16 167/89 100 10/21/17 07:12 98.3 F 70 16 152/90 95 10/21/17 03:17 97.6 F 69 16 135/79 97 10/21/17 00:54 98.4 F 95 16 133/76 99 10/21/17 00:39 98.2 F 75 16 147/76 99 10/21/17 00:31 98.3 F 79 16 128/79 99 10/21/17 00:20 98.3 F 79 14 128/79 99 10/20/17 19:02 98.3 F 71 15 149/84 99 10/20/17 16:18 8.5 F L 71 16 149/91 98 10/20/17 16:04 98 F 76 16 130/84 Intake and Output 10/20/17 10/21/17 10/21/17 23:59 07:59 15:59 Intake Total 350 / 350 350 / 350 360 / 360 Output Total 600 / 600 800 / 800 Balance 350 / 350 -250 / -250 -440 / -440 Intake: Oral 360 / 360 Blood Product 350 / 350 350 / 350 Rbcs Leuko Poor As-1 Unit 350 / 350 [id number] Rbcs Leuko Poor As-3 2nd Unit 350 / 350 [id number] Output: Urine 600 / 600 800 / 800 Other: Meal Breakfast Percent of Meal Consumed 45% Blood Glucose* 109 85 122 Incision: clean and dry (dressings c/d/i with no visible drainage or surrounding erythema, no calf tenderness. good dorsiflexion of foot, grossly NV intact) - Labs CBC & BMP: 10/21/17 06:14 10/20/17 10:56 Labs: Abnormal lab results RBC 3.39 M/mcL (3.82-4.97) L 10/21/17 06:14 Hgb 9.9 g/dL (11.5-15.4) L D 10/21/17 06:14 Hct 31.4 % (35.3-44.9) L 10/21/17 06:14 MCHC 31.5 g/dL (31.6-35.5) L 10/21/17 06:14 RDW 17.2 % (11.5-14.5) H 10/21/17 06:14 Plt Count 127 K/mcL (140-400) L 10/21/17 06:14 PT 12.4 Seconds (9.4-12.1) H 10/18/17 04:17 Sodium 135 mEq/L (136-145) L 10/20/17 10:56 Carbon Dioxide 20 mEq/L (23-29) L 10/20/17 10:56 BUN 109 mg/dL (8-23) H 10/20/17 10:56 Creatinine 3.27 mg/dL (0.60-1.20) H 10/20/17 10:56 Est GFR ( Amer) 17 (> 60) L 10/20/17 10:56 Est GFR (Non-Af Amer) 14 (> 60) L 10/20/17 10:56 BUN/Creatinine Ratio 33 (6-26) H 10/20/17 10:56 Glucose 176 mg/dL (70-105) H 10/20/17 10:56 POC Glucose 122 (58-89) H 10/21/17 11:51 Calculated Osmolality 319 (280-300) H 10/20/17 10:56 Calcium 8.4 mg/dL (8.6-10.3) L 10/20/17 10:56 - VTE Documentation of Mechanical Device: Venous foot pump, device Consult Discharge Plan - Plan Additional Instructions: F/up with [facility] in 2 weeks F/up with PCP in 1-2 weeks Referrals: Az Rene MD [Primary Care Provider] - Prescriptions: OxyCODONE/APAP 5/325 [Percocet 5/325 MG] 1 each PO Q4HR PRN 2 Days #15 tablet PRN Reason: Severe Pain>7
[2017-10-21] MEDS: *HR* Enoxaparin 30 MG/0.3 ML SYRINGE SQ SCH (16:27)
[2017-10-21 16:41] LABS: Hemoglobin A1C 4.5 %
[2017-10-21 20:42] VITALS: BP 156/88
== END 2017-10-21 22:00 | DRG 480 ==
LOC: 3NENU 01:41 → SUATTDRO 01:41
PROVIDERS: ADMIT Pediatrics; ATTEND Internal Medicine

== ENCOUNTER 2017-11-15 00:49 | Inpatient (IN) ==
[2017-11-15] MEDS ORDERED: Naloxone 0.4 MG/ML INJ IVP PRN (03:27)
--- NOTE | 2017-11-15 03:47 | Internal Med History&Physical ---
Date of Encounter: 11/15/17 Time of Encounter: 03:00 Assessment and Plan (1) Hepatic encephalopathy Current visit: Yes Status: Acute Patient has altered mental status, history of cirrhosis, ammonia level high to 112. Consider hepatic encephalopathy. - Lactulose was given in [facility] - We will continue lactulose to make patient has 2-3 bowel movement a day - Rifaxamin 400mg po bid - Closely follow up ammonia level (2) Acute on chronic renal failure Current visit: Yes Status: Acute Patient has history of stage IV CKD. Elevated BUN and creatinine level from baseline. Consider acute on chronic renal failure, etiology is undetermined. - 2 L IV fluid was given in [facility] - We will give albumin infusion to expand intravascular volume - US renal to rule out obstruction - Avoid nephrotoxic medications - Consul nephrology in AM Qualifiers: Acute renal failure type: unspecified Chronic kidney disease stage: stage 4 (severe) Qualified Code(s): N17.9 - Acute kidney failure, unspecified; N18.4 - Chronic kidney disease, stage 4 (severe); N18.4 - Chronic kidney disease , stage 4 (severe); N18.4 - Chronic kidney disease, stage 4 (severe); N18.4 - Chronic kidney disease, stage 4 (severe) (3) UTI (urinary tract infection) Current visit: Yes Status: Acute UA in [facility] shows UTI. We will continue Rocephin IV. Follow urine culture Qualifiers: Urinary tract infection type: acute cystitis Hematuria presence: with hematuria Qualified Code(s): N30.01 - Acute cystitis with hematuria (4) Hyperkalemia Current visit: Yes Status: Acute Has been treated in [facility]. Will closely follow-up potassium level and give treatment as needed. Will consult nephrology (5) DVT prophylaxis Current visit: No Status: Acute EPCD, no AC b/o thrombocytopenia (6) Cirrhosis Current visit: No Status: Chronic Patient has cirrhosis, probably due to hemachromatosis. Qualifiers: Hepatic cirrhosis type: unspecified hepatic cirrhosis Ascites presence: without ascites Qualified Code(s): K74.60 - Unspecified cirrhosis of liver (7) Hemochromatosis Current visit: No Status: Chronic Patient has been seen by oncology Qualifiers: Hemochromatosis type: hereditary Qualified Code(s): E83.110 - Hereditary hemochromatosis (8) Hypothyroid Current visit: No Status: Chronic Continue home medication after verification Qualifiers: Hypothyroidism type: unspecified Qualified Code(s): E03.9 - Hypothyroidism , unspecified (9) Osteoporosis Current visit: No Status: Chronic Qualifiers: Osteoporosis type: unspecified Presence of current pathological fracture: unspecified Qualified Code(s): M81.0 - Age-related osteoporosis without current pathological fracture (10) Sacral decubitus ulcer, stage IV Current visit: No Status: Chronic We will consult wound care. Patient is following with wound care as outpatient. Internal Medicine - H&P: HPI Chief complaint: Altered mental status Admitted From: Intrahospital Transfer Plans for Post Hospital Care: Transfer Inp Rehab Fac History of present illness: Ms. Taylor is a 62 year old female with history of osteoporosis, stage IV CKD, cirrhosis, hypothyroidism, stage IV sacral decubitus ulcer, recent hip surgery on 10/19/17, presented to [facility] ER for altered mental status. Patient's mental status has been changed and cannot remember a lot of history. History mainly obtained from previous chart. Patient said she was sent to ER because she does not feel good, with muscle twitching. Patient denies abdominal pain, nausea, diarrhea, or fever. In ER, she was found high-level ammonia at 112, UTI by urinalysis, and acute on chronic renal failure with BUNs over 150, creatinine 5.46, and a potassium 6.1. Patient was given IV fluid for 2 L, insulin plus D50 , bicarbonate, lactulose 30 ml, and Rocephin 1g in [facility]. Patient was transferred to our hospital for further management. Per transportation record, patient is full code. Past Med Surg Social Fam HX - Past Medical History Medical history: cirrhosis, hypertension, liver disease, renal disease, thyroid disease, other Psychiatric history: depression - Past Surgical History Surgical History: non-contributory, appendectomy, , cholecystectomy, hip replacement, knee replacement, orthopedic, other, bariatric surgery - Social History Smoking Status: Current every day smoker Smokeless Tobacco Status: No Alcohol use: none Drug use: none - Family History Father Adopted: No Living Status: Hx Family Cardiac Disorders: Yes (heart disease) Hx Family Respiratory Disorders: No Hx Family Cancer: No Hx Family GI Disorders: No Hx Family Endocrine Disorder: Yes Hx Family Neuromuscular Disorders: No Hx Family Neurologic Disorders: No Hx Family HEENT Disorders: No Hx Family Autoimmune Disorders: No Mother Adopted: No Living Status: Internal Medicine - H&P: Meds Calcium Citrate/Vitamin D3 [Calcium Citrate-Vit D3 Tablet] 500 mg PO BID [History] Cholecalciferol (Vitamin D3) [Vitamin D3] 1,000 unit PO DAILY 10/19/15 [History] L.acidoph,Paracasei, B.lactis [Probiotic] 1 cap PO DAILY 10/19/15 [History] Lactose-Reduced Food [Ensure High Protein] 1 bottle PO BID 10/19/15 [History] Levothyroxine [Synthroid] 175 mcg PO DAILY 10/19/15 [History] Melatonin 10 mg PO HS 10/19/15 [History] Multivitamin [Multivitamins] 1 cap PO DAILY 10/19/15 [History] Omeprazole [PriLOSEC] 20 mg PO BID 10/19/15 [History] Paricalcitol [Zemplar] 1 mcg PO DAILY 10/19/15 [History] Sertraline [Zoloft] 100 mg PO BID 10/19/15 [History] Trazodone HCl [TraZODone] 200 mg PO HS 10/19/15 [History] Propranolol HCl 40 mg PO BID 08/07/17 [History] Cyanocobalamin (B-12) [Vitamin B12] 1,000 mcg PO DAILY 10/18/17 [History] Duloxetine HCl [Cymbalta] 60 mg PO BID 10/18/17 [History] Tizanidine HCl [Zanaflex] 4 mg PO TID PRN 10/18/17 [History] Collagenase Oint [Santyl] 1 appl TP DAILY tube 10/21/17 [Rx] Docusate [Colace] 100 mg PO BID capsule 10/21/17 [Rx] Gabapentin [Neurontin] 300 mg PO BID #10 10/21/17 [Rx] Gentamicin Oint [Garamycin] 1 appl TP DAILY tube 10/21/17 [Rx] OxyCODONE/APAP 5/325 [Percocet 5/325 MG] 1 each PO Q4HR PRN 2 Days #15 tablet [Rx] fentaNYL [Fentanyl] 100 mcg TD Q72H 6 Days #2 10/21/17 [Rx] 3 Allergy/AdvReac Type Severity Reaction Status Date / Time ketorolac [From Toradol] AdvReac See Verified 06/29/17 23:20 Comments NSAIDS (Non-Steroidal AdvReac See Verified 06/29/17 23:20 Anti-Inflamma Comments sulfamethoxazole AdvReac See Verified 06/29/17 23:20 [From Bactrim] Comments trimethoprim [From Bactrim] AdvReac See Verified 06/29/17 23:20 Comments All Systems PM: A 10-system review of systems was performed and is negative for pertinent findings except as documented above in the HPI. - Constitutional Vitals: Temp Pulse Resp BP Pulse Ox 97.9 F 58 12 138/76 100 11/15/17 03:00 11/15/17 03:00 11/15/17 03:00 11/15/17 03:00 11/15/17 03:00 General appearance: Present: A&O X 1, no acute distress - Head Head exam: Present: atraumatic, normocephalic - Eye Eye exam: Present: PERRL, conjuntiva pink, sclera anicteric Pupils: Present: PERRL - Neck Neck exam general surgery: Present: supple, trachea midline. Absent: lymphadenopathy - Respiratory Respiratory exam: Present: CTAB. Absent: accessory muscle use, rales, rhonchi, wheezes - Cardiovascular Cardiovascular exam: Present: RRR, +S1, +S2. Absent: diastolic murmur, gallop, rubs, systolic murmur - GI/Abdominal GI/Abdominal exam: Present: normal bowel sounds, soft, no peritoneal signs. Absent: distended, tenderness - Extremities Exam Extremities exam: Present: warm, radial pulses palpable and symmetrical. Absent : calf tenderness, cyanotic, pedal edema - Neurological Exam Neurological exam: Present: CN II-XII intact, no focal deficits. Absent: pronater drift, facial droop, speech deficit - Skin Skin exam: Present: dry, intact Internal Med - H&P Results - EKG Data -: EKG Interpreted by Myself EKG shows normal: sinus rhythm Rate: normal
[2017-11-15 04:10] LABS: Basophils % 0.3 %; Eosinophils % 0.3 %; Hematocrit 25.5 % (35.3-44.9); Immature Granulocytes % 0.6 % (0-4); Lymphocytes # 1.3 K/mcL (0.6-4.6); Mean Corpuscular HGB Conc 31.4 g/dL (31.6-35.5); Mean Corpuscular Hemoglobin 30.3 pg (28.0-33.3); Mean Corpuscular Volume 96.6 fL (83.0-100.0); Mean Platelet Volume 11.1 fL (9.4-12.4); Monocytes # 0.4 K/mcL (0.0-1.3); Monocytes % 6.3 %; Neutrophils # 4.5 K/mcL (1.6-8.9); Platelet Count 103 K/mcL (140-400); Red Blood Count 2.64 M/mcL (3.82-4.97); Red Cell Distribution Width 16.1 % (11.5-14.5); Segmented Neutrophils % 71.5 %
[2017-11-15] MEDS: cefTRIAXone 1,000 MG in Water for inj. (sterile) 20 ML 10 ML IVPB SCH (04:18)
[2017-11-15 04:37] LABS: INR 1.2; Prothrombin Time 12.9 Seconds (9.4-12.1)
[2017-11-15 04:43] LABS: Alanine Aminotransferase 3 Units/L (7-52); Albumin 2.7 g/dL (3.5-5.7); Albumin/Globulin Ratio 0.8 (1.1-2.2); Alkaline Phosphatase 61 Units/L (34-104); Aspartate Amino Transferase 10 Units/L (13-39); Bilirubin,Total 0.5 mg/dL (0.3-1.0); Blood Urea Nitrogen > 130 mg/dL (8-23); Calcium 8.1 mg/dL (8.6-10.3); Carbon Dioxide 13 mEq/L (23-29); Chloride 116 mEq/L (98-107); Globulin 3.4 g/dL (2.4-3.5); Glucose 76 mg/dL (70-105); Sodium 143 mEq/L (136-145); Total Protein 6.1 g/dL (6.4-8.9); eGFR For African Americans 11 (> 60); eGFR For Non-African Americans 9 (> 60)
[2017-11-15 05:00] LABS: Bilirubin,Urine Negative (Negative); Blood,Urine Large (Negative); Clarity,Urine Turbid (Clear); Color,Urine Red (Yellow); Glucose,Urine (UA) Normal (Normal); Ketones,Urine Negative (Negative); Leukocyte Esterase,Urine Large (Negative); Nitrite,Urine Negative (Negative); PH,Urine 8.5 pH Units (5.0-8.0); Protein,Urine 100 mg/dL (Neg-Trace); Specific Gravity,Urine 1.012 (1.010-1.025); Urobilinogen,Urine Normal (Normal)
[2017-11-15] MEDS: Lactulose Oral Soln 20 GM/30 ML UDC PO SCH ×2 (07:34→20:26)
[2017-11-15] MEDS: Albumin 25% 25gram/100mL 25 GM/100 ML IV.SOLN IVPB SCH ×2 (07:34→11:52)
--- NOTE | 2017-11-15 07:37 | Urology - Consult Note ---
Date of Encounter: 11/15/17 Time of Encounter: 07:34 Urology CN:HPI Consult date: 11/15/17 Reason for consult Urology: Gross Hematuria Requesting physician: Ayleen King History of present illness: Helen is a 62-year-old female with a history of chronic renal insufficiency and liver disease. Patient presented to outside facility with markedly elevated serum creatinine and altered mental status. Patient was transferred here for further evaluation. Patient had catheter placed which returned some bloody urine. Urinalysis was also consistent with urinary tract infection. Patient does state that she has had some burning over the past few days. Patient still moderately confused and has difficulty finding her answers to questions. Patient's serum creatinine has improved with fluids and current treatment. Past Med Surg Social Fam HX - Past Medical History Medical history: cirrhosis, hypertension, liver disease, renal disease, thyroid disease, other Psychiatric history: depression - Past Surgical History Surgical History: non-contributory, appendectomy, , cholecystectomy, hip replacement, knee replacement, orthopedic, other, bariatric surgery - Social History Smoking Status: Current every day smoker Smokeless Tobacco Status: No Alcohol use: none Drug use: none - Family History Father Adopted: No Living Status: Hx Family Cardiac Disorders: Yes (heart disease) Hx Family Respiratory Disorders: No Hx Family Cancer: No Hx Family GI Disorders: No Hx Family Endocrine Disorder: Yes Hx Family Neuromuscular Disorders: No Hx Family Neurologic Disorders: No Hx Family HEENT Disorders: No Hx Family Autoimmune Disorders: No Mother Adopted: No Living Status: Medications and Allergies Calcium Citrate/Vitamin D3 [Calcium Citrate-Vit D3 Tablet] 500 mg PO BID [History] Cholecalciferol (Vitamin D3) [Vitamin D3] 1,000 unit PO DAILY 10/19/15 [History] L.acidoph,Paracasei, B.lactis [Probiotic] 1 cap PO DAILY 10/19/15 [History] Lactose-Reduced Food [Ensure High Protein] 1 bottle PO BID 10/19/15 [History] Levothyroxine [Synthroid] 175 mcg PO DAILY 10/19/15 [History] Melatonin 10 mg PO HS 10/19/15 [History] Multivitamin [Multivitamins] 1 cap PO DAILY 10/19/15 [History] Omeprazole [PriLOSEC] 20 mg PO BID 10/19/15 [History] Paricalcitol [Zemplar] 1 mcg PO DAILY 10/19/15 [History] Sertraline [Zoloft] 100 mg PO BID 10/19/15 [History] Trazodone HCl [TraZODone] 200 mg PO HS 10/19/15 [History] Propranolol HCl 40 mg PO BID 08/07/17 [History] Cyanocobalamin (B-12) [Vitamin B12] 1,000 mcg PO DAILY 10/18/17 [History] Duloxetine HCl [Cymbalta] 60 mg PO BID 10/18/17 [History] Tizanidine HCl [Zanaflex] 4 mg PO TID PRN 10/18/17 [History] Collagenase Oint [Santyl] 1 appl TP DAILY tube 10/21/17 [Rx] Docusate [Colace] 100 mg PO BID capsule 10/21/17 [Rx] Gabapentin [Neurontin] 300 mg PO BID #10 10/21/17 [Rx] Gentamicin Oint [Garamycin] 1 appl TP DAILY tube 10/21/17 [Rx] OxyCODONE/APAP 5/325 [Percocet 5/325 MG] 1 each PO Q4HR PRN 2 Days #15 tablet [Rx] fentaNYL [Fentanyl] 100 mcg TD Q72H 6 Days #2 10/21/17 [Rx] 3 Allergy/AdvReac Type Severity Reaction Status Date / Time ketorolac [From Toradol] AdvReac See Verified 06/29/17 23:20 Comments NSAIDS (Non-Steroidal AdvReac See Verified 06/29/17 23:20 Anti-Inflamma Comments sulfamethoxazole AdvReac See Verified 06/29/17 23:20 [From Bactrim] Comments trimethoprim [From Bactrim] AdvReac See Verified 06/29/17 23:20 Comments Review of Systems ROS unobtainable: due to mental status (Patient's mental status makes it difficult for her to find answers to questions.) Exam Initial Vital Signs Temp Pulse Resp BP Pulse Ox 97.9 F 55 12 138/76 100 11/15/17 03:00 11/15/17 03:00 11/15/17 03:00 11/15/17 03:00 11/15/17 03:00 - General physical appearance Present: cachectic, chronically ill - Eyes Present: PERRL, normal ocular movement - Neck Present: no masses, no lymphadenopathy - Respiratory Present: normal respiratory effort, clear to auscultation - Cardiovascular Cardiovascular exam IM: RRR (No murmurs noted) - Abdomen Abdomen: Present: soft. Absent: suprapubic tenderness - Genitourinary Present: other (Urinary catheter in place with slightly blood-tinged urine in the tubing) - Integumentary Present: no rash, no abnormal pigmentation - Neurologic Present: disoriented, confused - Additional Findings Head: Normocephalic atraumatic Urology Results - Labs 11/15/17 03:55 11/15/17 03:55 Abnormal lab results RBC 2.64 M/mcL (3.82-4.97) L 11/15/17 03:55 Hgb 8.0 g/dL (11.5-15.4) L 11/15/17 03:55 Hct 25.5 % (35.3-44.9) L 11/15/17 03:55 MCHC 31.4 g/dL (31.6-35.5) L 11/15/17 03:55 RDW 16.1 % (11.5-14.5) H 11/15/17 03:55 Plt Count 103 K/mcL (140-400) L 11/15/17 03:55 PT 12.9 Seconds (9.4-12.1) H 11/15/17 03:55 Chloride 116 mEq/L (98-107) H 11/15/17 03:55 Carbon Dioxide 13 mEq/L (23-29) L 11/15/17 03:55 BUN > 130 mg/dL (8-23) H 11/15/17 03:55 Creatinine 4.71 mg/dL (0.60-1.20) H 11/15/17 03:55 Est GFR ( Amer) 11 (> 60) L 11/15/17 03:55 Est GFR (Non-Af Amer) 9 (> 60) L 11/15/17 03:55 Calcium 8.1 mg/dL (8.6-10.3) L 11/15/17 03:55 AST 10 Units/L (13-39) L 11/15/17 03:55 ALT 3 Units/L (7-52) L 11/15/17 03:55 Ammonia 74 mcmol/L (16-53) H 11/15/17 03:55 Serum Total Protein 6.1 g/dL (6.4-8.9) L 11/15/17 03:55 Albumin 2.7 g/dL (3.5-5.7) L 11/15/17 03:55 Albumin/Globulin Ratio 0.8 (1.1-2.2) L 11/15/17 03:55 Urine Color Red (Yellow) A 11/15/17 04:28 Urine Clarity Turbid (Clear) A 11/15/17 04:28 Urine pH 8.5 pH Units (5.0-8.0) H 11/15/17 04:28 Urine Protein 100 mg/dL (Neg-Trace) H 11/15/17 04:28 Urine Blood Large (Negative) H 11/15/17 04:28 Ur Leukocyte Esterase Large (Negative) H 11/15/17 04:28 Diabetes panel 11/15/17 Range/Units 03:55 Sodium 143 (136-145) mEq/L Potassium 5.0 (3.5-5.1) mEq/L Chloride 116 H (98-107) mEq/L Carbon Dioxide 13 L (23-29) mEq/L BUN > 130 H (8-23) mg/dL Creatinine 4.71 H (0.60-1.20) mg/dL Glucose 76 (70-105) mg/dL Calcium 8.1 L (8.6-10.3) mg/dL AST 10 L (13-39) Units/L ALT 3 L (7-52) Units/L Alkaline Phosphatase 61 (34-104) Units/L Albumin 2.7 L (3.5-5.7) g/dL Calcium panel 11/15/17 Range/Units 03:55 Calcium 8.1 L (8.6-10.3) mg/dL Albumin 2.7 L (3.5-5.7) g/dL Pituitary panel 11/15/17 Range/Units 03:55 Sodium 143 (136-145) mEq/L Potassium 5.0 (3.5-5.1) mEq/L Chloride 116 H (98-107) mEq/L Carbon Dioxide 13 L (23-29) mEq/L BUN > 130 H (8-23) mg/dL Creatinine 4.71 H (0.60-1.20) mg/dL Glucose 76 (70-105) mg/dL Calcium 8.1 L (8.6-10.3) mg/dL Adrenal panel 11/15/17 Range/Units 03:55 Sodium 143 (136-145) mEq/L Potassium 5.0 (3.5-5.1) mEq/L Chloride 116 H (98-107) mEq/L Carbon Dioxide 13 L (23-29) mEq/L BUN > 130 H (8-23) mg/dL Creatinine 4.71 H (0.60-1.20) mg/dL Glucose 76 (70-105) mg/dL Calcium 8.1 L (8.6-10.3) mg/dL Total Bilirubin 0.5 (0.3-1.0) mg/dL AST 10 L (13-39) Units/L ALT 3 L (7-52) Units/L Alkaline Phosphatase 61 (34-104) Units/L Albumin 2.7 L (3.5-5.7) g/dL All other labs normal. Consult Discharge Plan - Plan Referrals: Az Rene MD [Primary Care Provider] -
--- NOTE | 2017-11-15 10:53 | Nephrology Consult Note ---
Date of Encounter: 11/15/17 Time of Encounter: 09:10 Assessment and Plan (1) ESRD (end stage renal disease) Current Visit: Yes Status: Acute In reviewing my colleague's last outpt progress note from Sep, the pt reported that she'd be willing to start HD and her eGFR at that time was actually stage V CKD at 14. She has continue to worsen, and I will officially change her to ESRD and recommend starting HD. Will request a Permacath in the AM and recommend three days of consecutive HD for Thursday, Thursday, Thursday. Recommend arranging for a dialysis chair time. The hyperkalemia has improved and she is not emergency fluid overloaded, so she does not have emergent HD needs today (Thursday), but she does have confusion, with could be a combination of hepatic encephalopathy given her hx of cirrhosis of the liver and/or uremia given the severe elevation of her BUN. Cont to track strict I/Os, daily weights and renal diet. Thank you for consulting the [facility] group. Will continue to follow with you. (2) Hyperkalemia Current Visit: Yes Status: Acute Improved slightly. See above (3) Metabolic acidosis Current Visit: Yes Status: Acute Likely d/t renal failure. (4) Hepatic encephalopathy Current Visit: Yes Status: Acute Agree with lactulose. (5) Cirrhosis Current Visit: No Status: Chronic As per primary. Qualifiers: Hepatic cirrhosis type: unspecified hepatic cirrhosis Ascites presence: without ascites Qualified Code(s): K74.60 - Unspecified cirrhosis of liver (6) Essential hypertension Current Visit: No Status: Chronic Hx of HTN. Hold any YOLANDA or ARB at this time. (7) Renal cysts, acquired, bilateral Current Visit: Yes Status: Chronic I reviewed the MRI abd from 02/2017 with numerous simple renal cysts and the report suggest ADPKD. (8) Secondary hyperparathyroidism (of renal origin) Current Visit: Yes Status: Chronic Hx of SHPT and i'll update her 25-OH vit D, iPTH and Phos, plus Ca levels. (9) Anemia Current Visit: Yes Status: Chronic Hx of longstanding anemia, and she has required GUICHO for quite some time. Goal Hgb is 10-11. Will defer any GIB work up, if indicated, to the primary team, and in the meantime, I'll continue the Aranesp while as an inpt. After this admission, the Aranesp can be stopped and she'll switch to EPO at the dialysis unit. Qualifiers: Anemia type: unspecified type Qualified Code(s): D64.9 - Anemia, unspecified History of Present Illness - Reason for Consult Consult date: 11/15/17 Chronic Kidney Disease Requesting physician: Ayleen King - Chief Complaint Progression to renal failure - History of Present Illness Helen Taylor is a pleasant 62 y/o frail appearing female with a pmh of CKD stage V (followed by Dr. Briceno), HTN, renal cysts, cirrhosis of the liver, hemachromatosis with chronic anemia and et al who presented with AMS. Nephrology was consulted since her CKD stage V labs have further declined. She was last seen by Dr. Briceno in Sep and since then she was hospitalized at [facility] with a hip fracture. She was by herself when I examined and interviewed her in the ICU earlier today, and with her confusion, the HPI history and ROS were very limited. She was able to deny taking NSAIDS but when I asked other basic questions about location and year, she was not able to answer and thought it was still 2017. Past Med Surg Social Fam HX - Past Medical History Medical history: cirrhosis, hypertension, liver disease, renal disease, thyroid disease, other Psychiatric history: depression - Past Surgical History Surgical History: non-contributory, appendectomy, , cholecystectomy, hip replacement, knee replacement, orthopedic, other, bariatric surgery - Social History Smoking Status: Current every day smoker Smokeless Tobacco Status: No Alcohol use: none Drug use: none - Family History Father Adopted: No Living Status: Hx Family Cardiac Disorders: Yes (heart disease) Hx Family Respiratory Disorders: No Hx Family Cancer: No Hx Family GI Disorders: No Hx Family Endocrine Disorder: Yes Hx Family Neuromuscular Disorders: No Hx Family Neurologic Disorders: No Hx Family HEENT Disorders: No Hx Family Autoimmune Disorders: No Mother Adopted: No Living Status: Medications and Allergies Calcium Citrate/Vitamin D3 [Calcium Citrate-Vit D3 Tablet] 500 mg PO BID [History] Cholecalciferol (Vitamin D3) [Vitamin D3] 1,000 unit PO DAILY 10/19/15 [History] L.acidoph,Paracasei, B.lactis [Probiotic] 1 cap PO DAILY 10/19/15 [History] Lactose-Reduced Food [Ensure High Protein] 1 bottle PO BID 10/19/15 [History] Levothyroxine [Synthroid] 175 mcg PO DAILY 10/19/15 [History] Melatonin 10 mg PO HS 10/19/15 [History] Multivitamin [Multivitamins] 1 cap PO DAILY 10/19/15 [History] Omeprazole [PriLOSEC] 20 mg PO BID 10/19/15 [History] Paricalcitol [Zemplar] 1 mcg PO DAILY 10/19/15 [History] Sertraline [Zoloft] 100 mg PO BID 10/19/15 [History] Trazodone HCl [TraZODone] 200 mg PO HS 10/19/15 [History] Propranolol HCl 40 mg PO BID 08/07/17 [History] Cyanocobalamin (B-12) [Vitamin B12] 1,000 mcg PO DAILY 10/18/17 [History] Duloxetine HCl [Cymbalta] 60 mg PO BID 10/18/17 [History] Tizanidine HCl [Zanaflex] 4 mg PO TID PRN 10/18/17 [History] Collagenase Oint [Santyl] 1 appl TP DAILY tube 10/21/17 [Rx] Docusate [Colace] 100 mg PO BID capsule 10/21/17 [Rx] Gabapentin [Neurontin] 300 mg PO BID #10 10/21/17 [Rx] Gentamicin Oint [Garamycin] 1 appl TP DAILY tube 10/21/17 [Rx] fentaNYL [Fentanyl] 100 mcg TD Q72H 6 Days #2 10/21/17 [Rx] 3 Allergy/AdvReac Type Severity Reaction Status Date / Time ketorolac [From Toradol] AdvReac See Verified 06/29/17 23:20 Comments NSAIDS (Non-Steroidal AdvReac See Verified 06/29/17 23:20 Anti-Inflamma Comments sulfamethoxazole AdvReac See Verified 06/29/17 23:20 [From Bactrim] Comments trimethoprim [From Bactrim] AdvReac See Verified 06/29/17 23:20 Comments Review of Systems ROS unobtainable: due to mental status Exam - Vital Signs Vital signs: Initial Vital Signs Temp Pulse Resp BP Pulse Ox 97.9 F 55 12 138/76 100 11/15/17 03:00 11/15/17 03:00 11/15/17 03:00 11/15/17 03:00 11/15/17 03:00 Vital Signs - Last 8 Hours Temp Pulse Resp BP Pulse Ox 11/15/17 09:00 64 15 136/75 100 11/15/17 08:13 98.2 F 11/15/17 08:00 67 14 147/73 100 11/15/17 07:00 64 12 139/72 100 11/15/17 05:49 56 12 122/62 100 11/15/17 05:00 57 10 141/81 100 11/15/17 04:00 55 12 137/74 100 11/15/17 03:00 97.9 F 58 12 138/76 100 Intake and Output 11/14/17 11/15/17 11/15/17 23:59 07:59 15:59 Intake Total Output Total 800 / 800 750 / 750 Balance -790 / -790 -750 / -750 Intake: IV Fluids Rocephin 1,000 MG In Water for inj. (sterile) 10 ML @ 300 mls/ hr IVPB Q24H COUNTS INCLUDE 234 BEDS AT THE [facility] Rx#:[id number] Oral 0 / 0 Output: Catheter 800 / 800 750 / 750 Other: Stool Size Moderate Stool Consistency formed Stool Color Brown # Bowel Movements 1 Weight 45.3 kg Blood Glucose* 91 Patient Weight 11/15/17 23:59 Weight 45.3 kg - General Appearance General appearance: cachectic (and appeas older than listed age), fatigue, frail EENT: ATNC, PERRL, mucous membranes moist Neck: supple Respiratory: clear Cardiology: no edema, normal S1, normal S2 Gastrointestinal: normoactive bowel sounds, no tenderness Additional Comments: very thin abdomen Integumentary: warm and dry Neurologic: asterixis (in both wrists), confused, disoriented Musculoskeletal: no erythema, no cyanosis Psychiatric: cooperative Results - Lab Results 11/15/17 03:55 11/15/17 03:55 Most recent lab results Calcium 8.1 mg/dL (8.6-10.3) L 11/15/17 03:55 I reviewed the labs, inpt and outpt med lists, vitals, progress notes (both inpt and outpt) and imaging. - Image Kidney/bladder ultrasound: other (I reviewed the MRI abd from 02/2017: numerous simple bilateral renal cysts that could represent ADPKD) Consult Discharge Plan - Plan Referrals: Az Rene MD [Primary Care Provider] -
[2017-11-15 14:17] LABS: Hepatitis B Surface Antigen Nonreactive (Nonreactive)
--- NOTE | 2017-11-15 22:02 | Internal Med Progress Note ---
Date of Encounter: 11/15/17 Time of Encounter: 10:22 - Constitutional Vitals: Temp Pulse Resp BP Pulse Ox 97.9 F 65 12 139/77 98 11/15/17 20:22 11/15/17 19:50 11/15/17 19:50 11/15/17 19:50 11/15/17 19:50 General appearance: Present: A&O X 1, no acute distress Internal Medicine: Result - Labs CBC & Chem 7: 11/16/17 04:18 11/16/17 04:18 Labs: Short CBC 11/15/17 Range/Units 03:55 WBC 6.3 (4.3-11.1) K/mcL Hgb 8.0 L (11.5-15.4) g/dL Hct 25.5 L (35.3-44.9) % Plt Count 103 L (140-400) K/mcL Neutrophils # 4.5 (1.6-8.9) K/mcL BMP 11/15/17 03:55 Sodium 143 Potassium 5.0 Chloride 116 H Carbon Dioxide 13 L BUN > 130 H Creatinine 4.71 H Glucose 76 Calcium 8.1 L Liver Function 11/15/17 Range/Units 03:55 Total Bilirubin 0.5 (0.3-1.0) mg/dL AST 10 L (13-39) Units/L ALT 3 L (7-52) Units/L Alkaline Phosphatase 61 (34-104) Units/L Albumin 2.7 L (3.5-5.7) g/dL Urine 11/15/17 Range/Units 04:28 Urine Color Red A (Yellow) Urine Clarity Turbid A (Clear) Urine pH 8.5 H (5.0-8.0) pH Units Ur Specific [place] 1.012 (1.010-1.025) Urine Protein 100 H (Neg-Trace) mg/dL Urine Glucose (UA) Normal (Normal) mg/dL - ABG Interpretation ABG results: PT/INR, D-dimer PT 12.9 Seconds (9.4-12.1) H 11/15/17 03:55 - Impressions Impressions Brain MRI 11/15/17 10:10 IMPRESSION: Approximately 6 mm thick subdural collection along the right cerebral convexity. No associated midline shift or significant mass effect. Differential includes late acute to subacute hematoma. Infectious collection is in the differential. No acute infarct, or significant mass effect. Chronic small vessel ischemic white matter disease and cerebral volume loss. D/ / 11/15/2017 14:15:16 Trip Ogden MD / marcie Interpreting Provider: Trip Ogden MD - VTE Documentation of Mechanical Device: Intermittent pneumatic compression device Consult Discharge Plan - Plan Referrals: Az Rene MD [Primary Care Provider] -
[2017-11-16 00:29] LABS: Amphetamine Screen,Urine Negative ng/mL (Cutoff=1000); Barbiturate Screen,Urine Negative ng/mL (Cutoff=200); Benzodiazepines Screen,Urine Negative ng/mL (Cutoff=200); Cannabinoid Screen,Urine Negative ng/mL (Cutoff = 50); Cocaine Screen,Urine Negative ng/mL (Cutoff= 300); Opiate Screen,Urine Negative ng/mL (Cutoff=300); Phencyclidine Screen,Urine Negative ng/mL (Cutoff=25)
[2017-11-16] MEDS: Albumin 25% 25gram/100mL 25 GM/100 ML IV.SOLN IVPB SCH (00:47)
[2017-11-16] MEDS: cefTRIAXone 1,000 MG in Water for inj. (sterile) 20 ML 10 ML IVPB SCH (03:58)
[2017-11-16 04:46] LABS: Basophils % 0.2 %; Eosinophils % 0.4 %; Hemoglobin 6.4 g/dL (11.5-15.4); Immature Granulocytes % 0.4 % (0-4)
[2017-11-16 04:48] LABS: Hematocrit 20.7 % (35.3-44.9); Immature Platelets 1.9 % (1.1-6.1); Lymphocytes # 1.3 K/mcL (0.6-4.6); Lymphocytes % 25.3 %; Mean Corpuscular HGB Conc 30.9 g/dL (31.6-35.5); Mean Corpuscular Hemoglobin 29.8 pg (28.0-33.3); Mean Corpuscular Volume 96.3 fL (83.0-100.0); Mean Platelet Volume 11.5 fL (9.4-12.4); Monocytes # 0.3 K/mcL (0.0-1.3); Monocytes % 6.4 %; Neutrophils # 3.4 K/mcL (1.6-8.9); Red Blood Count 2.15 M/mcL (3.82-4.97); Red Cell Distribution Width 16.1 % (11.5-14.5); Segmented Neutrophils % 67.3 %
[2017-11-16 04:52] LABS: INR 1.3; Prothrombin Time 13.7 Seconds (9.4-12.1)
[2017-11-16 04:54] LABS: Blood Urea Nitrogen > 130 mg/dL (8-23); Calcium 8.8 mg/dL (8.6-10.3); Carbon Dioxide 14 mEq/L (23-29); Chloride 117 mEq/L (98-107); Creatine Kinase 33 Units/L (30-223); Glucose 83 mg/dL (70-105); Potassium 4.6 mEq/L (3.5-5.1); Sodium 146 mEq/L (136-145); Uric Acid 6.2 mg/dL (2.3-7.6); eGFR For African Americans 12 (> 60); eGFR For Non-African Americans 10 (> 60)
[2017-11-16] MEDS ORDERED: *HR* HYDROcodone/Acet 5/325 mg TABLET PO ONE ×2 (05:00→19:33)
[2017-11-16 05:01] LABS: Platelet Count 79 K/mcL (140-400)
[2017-11-16] MEDS ORDERED: 0.9 % Sodium Chloride 250 ML IVC PRN (07:22)
--- NOTE | 2017-11-16 07:40 | Urology Progress Note ---
Date of Encounter: 11/16/17 Time of Encounter: 07:39 - Assessment and Plan (1) UTI (urinary tract infection) Current Visit: Yes Status: Acute Assessment and plan: Patient's hematuria has resolved at this time. Hematuria was most likely secondary to urinary tract infection. Patient will need follow-up with our group in 2-3 weeks after discharge. Qualifiers: Urinary tract infection type: acute cystitis Hematuria presence: with hematuria Qualified Code(s): N30.01 - Acute cystitis with hematuria Progress Note Narrative: Patient seen and evaluated this morning. No issues with catheter overnight Objective Initial Vital Signs Temp Pulse Resp BP Pulse Ox 97.9 F 55 12 138/76 100 11/15/17 03:00 11/15/17 03:00 11/15/17 03:00 11/15/17 03:00 11/15/17 03:00 - General physical appearance Present: well developed, well nourished, no distress - Respiratory Present: normal expansion, normal respiratory effort - Abdomen Present: soft. Absent: tender - Genitourinary Present: other (Urine clear in catheter tubing) - Labs 11/16/17 04:18 11/16/17 04:18 Diabetes panel 11/16/17 Range/Units 04:18 Sodium 146 H (136-145) mEq/L Potassium 4.6 (3.5-5.1) mEq/L Chloride 117 H (98-107) mEq/L Carbon Dioxide 14 L (23-29) mEq/L BUN > 130 H (8-23) mg/dL Creatinine 4.64 H (0.60-1.20) mg/dL Glucose 83 (70-105) mg/dL Calcium 8.8 (8.6-10.3) mg/dL Calcium panel 11/16/17 Range/Units 04:18 Calcium 8.8 (8.6-10.3) mg/dL Pituitary panel 11/16/17 Range/Units 04:18 Sodium 146 H (136-145) mEq/L Potassium 4.6 (3.5-5.1) mEq/L Chloride 117 H (98-107) mEq/L Carbon Dioxide 14 L (23-29) mEq/L BUN > 130 H (8-23) mg/dL Creatinine 4.64 H (0.60-1.20) mg/dL Glucose 83 (70-105) mg/dL Calcium 8.8 (8.6-10.3) mg/dL Adrenal panel 11/16/17 Range/Units 04:18 Sodium 146 H (136-145) mEq/L Potassium 4.6 (3.5-5.1) mEq/L Chloride 117 H (98-107) mEq/L Carbon Dioxide 14 L (23-29) mEq/L BUN > 130 H (8-23) mg/dL Creatinine 4.64 H (0.60-1.20) mg/dL Glucose 83 (70-105) mg/dL Calcium 8.8 (8.6-10.3) mg/dL - VTE Documentation of Mechanical Device: Intermittent pneumatic compression device Consult Discharge Plan - Plan Referrals: Az Rene MD [Primary Care Provider] -
--- NOTE | 2017-11-16 08:13 | Internal Med Progress Note ---
Date of Encounter: 11/16/17 Time of Encounter: 08:10 - Assessment and plan (1) Hepatic encephalopathy Current Visit: Yes Status: Acute Assessment and plan: Encephalopathy: Thought to be hepatic encephalopathy. However, there is late acute to subacute subdural hematoma. There is no mass effect or midline shift but further workup for anemia would limit workup at this facility at risk of complications. Patient would need further treatment at a tertiary center who has Neuro Surgery service available. Continue Lactulose 20 gm BID Continue Rifaxamin - ideal dose for hepatic encephalopathy is 550 mg BID - based on hospital availability will increase to 600 BID. Hematuria - resolved - likely from UTI Acute on Chronic Renal Failure - permacath today Dialysis today - IR consulted UTI GNR prelim on culture - Continue Rocephin Acute on Chronic anemia - From hematuria but GIB is also possible - Consult GI - Cycle H&H - Give one unit PRBC with dialysis today - Focal occult. - EGD/Colonoscopy may be complicated with changes in intracranial pressure given finding of subdural hematoma Will arrange for transfer to [place]. (2) ESRD (end stage renal disease) Current Visit: Yes Status: Acute (3) Anemia Current Visit: Yes Status: Chronic Qualifiers: Anemia type: unspecified type Qualified Code(s): D64.9 - Anemia, unspecified (4) DVT prophylaxis Current Visit: No Status: Acute (5) Diabetes mellitus Current Visit: No Status: Acute Qualifiers: Diabetes mellitus type: type 2 Diabetes mellitus complication status: with unspecified complications Diabetes mellitus buttermaker insulin use: without buttermaker use Qualified Code(s): E11.8 - Type 2 diabetes mellitus with unspecified complications (6) Diabetic ulcer of left great toe Current Visit: No Status: Acute (7) Cirrhosis Current Visit: No Status: Chronic Qualifiers: Hepatic cirrhosis type: unspecified hepatic cirrhosis Ascites presence: without ascites Qualified Code(s): K74.60 - Unspecified cirrhosis of liver (8) Essential hypertension Current Visit: No Status: Chronic (9) Hemochromatosis Current Visit: No Status: Chronic Qualifiers: Hemochromatosis type: hereditary Qualified Code(s): E83.110 - Hereditary hemochromatosis (10) Sacral decubitus ulcer, stage IV Current Visit: No Status: Chronic - Constitutional Vitals: Temp Pulse Resp BP Pulse Ox 98.2 F 62 12 137/69 100 11/16/17 04:00 11/16/17 06:00 11/16/17 06:00 11/16/17 06:00 11/16/17 06:00 General appearance: Present: A&O X 1, no acute distress - Head Head exam: Present: atraumatic, normocephalic - Eye Eye exam: Present: PERRL, conjuntiva pink, sclera anicteric Pupils: Present: PERRL - Neck Neck exam general surgery: Present: supple, trachea midline. Absent: lymphadenopathy - Respiratory Respiratory exam: Present: CTAB. Absent: accessory muscle use, rales, rhonchi, wheezes - Cardiovascular Cardiovascular exam: Present: RRR, +S1, +S2. Absent: diastolic murmur, gallop, rubs, systolic murmur - GI/Abdominal GI/Abdominal exam: Present: normal bowel sounds, soft, no peritoneal signs. Absent: distended, tenderness - Extremities Exam Extremities exam: Present: warm, radial pulses palpable and symmetrical. Absent : calf tenderness, cyanotic, pedal edema - Neurological Exam Neurological exam: Present: CN II-XII intact, oriented X3, no focal deficits. Absent: pronater drift, facial droop, speech deficit - Skin Skin exam: Present: dry, intact Internal Medicine: Result - Labs CBC & Chem 7: 11/16/17 04:18 11/16/17 04:18 Labs: Short CBC 11/16/17 Range/Units 04:18 WBC 5.0 (4.3-11.1) K/mcL Hgb 6.4 L D (11.5-15.4) g/dL Hct 20.7 L (35.3-44.9) % Plt Count 79 L (140-400) K/mcL Neutrophils # 3.4 (1.6-8.9) K/mcL BMP 11/16/17 04:18 Sodium 146 H Potassium 4.6 Chloride 117 H Carbon Dioxide 14 L BUN > 130 H Creatinine 4.64 H Glucose 83 Calcium 8.8 - ABG Interpretation ABG results: PT/INR, D-dimer PT 13.7 Seconds (9.4-12.1) H 11/16/17 04:18 - Impressions Impressions Brain MRI 11/15/17 10:10 IMPRESSION: 1. Approximately 6 mm thick subdural collection along right cerebral convexity. Approximately 2mm thick subdural collection along the left cerebral convexity. No associated midline shift or significant mass effect. Differential includes late acute to subacute hematoma, and less likely infectious collection. No contrast was administered with this examination. Correlation with history is recommended. 2. No acute infarct, or significant mass effect. 3. Chronic small vessel ischemic white matter disease and moderate diffuse cerebral volume loss. Findings were discussed with Dr. Anderson at 2:29pm on 11/15/2017. D/ / 11/15/2017 14:15:16 Trip Ogden MD / marcie Interpreting Provider: Trip Ogden MD - VTE Documentation of Mechanical Device: Intermittent pneumatic compression device Consult Discharge Plan - Plan Referrals: Az Rene MD [Primary Care Provider] -
[2017-11-16] MEDS ORDERED: 0.9 % Sodium Chloride 250 ML ONE (09:04)
[2017-11-16] MEDS: Lactulose Oral Soln 20 GM/30 ML UDC PO SCH ×2 (09:25→19:56)
--- NOTE | 2017-11-16 09:41 | Nephrology Progress Note ---
Date of Encounter: 11/16/17 Time of Encounter: 08:30 - Assessment and Plan (1) ESRD (end stage renal disease) Status: Acute Permacath today with first of three HDs back to back. Appreciate IR. Discussed with the hospitalist. Thank you. (2) Hyperkalemia Status: Acute (3) Metabolic acidosis Status: Acute (4) Hepatic encephalopathy Status: Acute (5) Cirrhosis Status: Chronic Qualifiers: Hepatic cirrhosis type: unspecified hepatic cirrhosis Ascites presence: without ascites Qualified Code(s): K74.60 - Unspecified cirrhosis of liver (6) Essential hypertension Status: Chronic (7) Renal cysts, acquired, bilateral Status: Chronic (8) Secondary hyperparathyroidism (of renal origin) Status: Chronic (9) Anemia Status: Chronic Qualifiers: Anemia type: unspecified type Qualified Code(s): D64.9 - Anemia, unspecified Subjective Principal diagnosis: QI Interval history: The pt was s/e earlier today. She did not affirm N/V/D or other uremic symptoms. Objective - Vital Signs Vital signs: Vital Signs Temp Pulse Resp BP Pulse Ox 11/16/17 09:25 98.6 F 63 18 139/83 98 11/16/17 08:30 98.3 F 62 16 145/72 99 11/16/17 07:30 60 18 146/75 100 11/16/17 06:00 62 12 137/69 100 11/16/17 05:01 64 12 150/75 99 11/16/17 04:00 98.2 F 67 16 150/77 98 11/16/17 03:00 62 12 129/70 97 11/16/17 02:00 59 12 137/75 97 11/16/17 01:37 97.8 F 11/16/17 01:00 61 10 148/74 100 11/16/17 00:00 61 10 148/71 99 11/15/17 23:00 60 12 125/64 99 11/15/17 22:00 68 16 115/75 100 11/15/17 21:00 63 10 135/73 98 11/15/17 20:22 97.9 F 11/15/17 19:50 65 12 139/77 98 11/15/17 19:00 64 10 124/68 99 11/15/17 16:00 66 12 122/65 97 11/15/17 15:57 98.1 F 03/18 15:32 64 11/15/17 15:00 62 12 118/72 99 11/15/17 14:00 64 13 111/64 96 11/15/17 12:00 98.5 F 61 10 118/68 97 11/15/17 11:00 60 14 118/78 97 11/15/17 10:00 61 15 128/69 98 Intake and Output 11/15/17 11/16/17 11/16/17 23:59 07:59 15:59 Intake Total Output Total 400 / 400 550 / 550 450 / 450 Balance -400 / -400 -550 / -550 -440 / -440 Intake: IV Fluids Rocephin 1,000 MG In Water for inj. (sterile) 10 ML @ 300 mls/ hr IVPB Q24H [facility] Rx#:[id number] Oral 0 / 0 Blood Product 0 / 0 Rbcs Leuko Poor As-1 Unit 0 / 0 [id number] Output: Urine 400 / 400 Catheter 550 / 550 450 / 450 Urethral (Izaguirre) 150 / 150 Other: Weight 45.2 kg Patient Weight 11/16/17 23:59 Weight 45.2 kg - General Appearance Exam: General appearance: cachectic (and appears older than listed age), fatigue, frail EENT: ATNC, PERRL, mucous membranes moist Neck: supple Respiratory: clear without rhonchi or rales Cardiology: no edema, normal S1, normal S2 Gastrointestinal: normoactive bowel sounds, no tenderness Additional Comments: very thin abdomen Integumentary: warm and dry Neurologic: asterixis (in both wrists), confused, disoriented Musculoskeletal: no erythema, no cyanosis Psychiatric: cooperative - Lab 11/16/17 04:18 11/16/17 04:18 Most recent lab results Calcium 8.8 mg/dL (8.6-10.3) 11/16/17 04:18 - VTE Documentation of Mechanical Device: Intermittent pneumatic compression device Consult Discharge Plan - Plan Referrals: Az Rene MD [Primary Care Provider] -
--- NOTE | 2017-11-16 11:41 | Discharge Summary ---
Orders not resulted at time of discharge: Pending orders 11/15/17 04:28 Culture,Urine [RM] Stat 11/16/17 IR cvc insrt tunnel wo prt/cash processing specialist [IR] Routine IR us guide needle place [IR] Routine 11/16/17 04:18 Vitamin D 25 Hydroxy AM 0400 11/16/17 08:28 Occult Blood,Stool [BF] Routine 11/16/17 16:00 US retroperitoneal comp [US] Routine Date of Encounter: 11/16/17 Time of Encounter: 11:39 - Discharge Diagnosis (1) Hepatic encephalopathy Priority: Primary Status: Acute (2) ESRD (end stage renal disease) Priority: Secondary Status: Acute (3) Anemia Priority: Secondary Status: Chronic Qualifiers: Anemia type: unspecified type Qualified Code(s): D64.9 - Anemia, unspecified (4) DVT prophylaxis Priority: Secondary Status: Acute (5) Diabetic ulcer of left great toe Priority: Secondary Status: Acute (6) Cirrhosis Priority: Secondary Status: Chronic Qualifiers: Hepatic cirrhosis type: unspecified hepatic cirrhosis Ascites presence: without ascites Qualified Code(s): K74.60 - Unspecified cirrhosis of liver (7) Essential hypertension Priority: Secondary Status: Chronic (8) Hemochromatosis Priority: Secondary Status: Chronic Qualifiers: Hemochromatosis type: hereditary Qualified Code(s): E83.110 - Hereditary hemochromatosis (9) Sacral decubitus ulcer, stage IV Priority: Secondary Status: Chronic (10) Diabetes mellitus Priority: Secondary Status: Acute Qualifiers: Diabetes mellitus type: type 2 Diabetes mellitus complication status: with unspecified complications Diabetes mellitus detention insulin use: without detention use Qualified Code(s): E11.8 - Type 2 diabetes mellitus with unspecified complications Hospital course: Ms. Taylor is a 62 year old female with history of osteoporosis, stage IV CKD, cirrhosis, hypothyroidism, stage IV sacral decubitus ulcer, recent hip surgery on 10/19/17, presented to [facility] ER for altered mental status. Patient's mental status has been changed and cannot remember a lot of history. History mainly obtained from previous chart. In [facility] ER, she was found high-level ammonia at 112, UTI by urinalysis, and acute on chronic renal failure with BUNs over 150 , creatinine 5.46, and a potassium 6.1. Patient was given IV fluid for 2 L, insulin plus D50, bicarbonate, lactulose 30 ml, and Rocephin 1g in [facility]. A CT scan was unremarkable. Patient was transferred to our hospital for further management. Nephrology was consulted for acute on chronic kidney injury and a permacath was planned for insertion as patient may need dialysis. Urology was consulted for hematuria that has since resolved. A drug screen was negative, ammonia improved to 74, INR 1.3. An MRI was done to rule out CVA. It did show an incidental finding of small late/subacute hematoma without any mass effect or shift that was not able to be seen on CT head. She was continued on Rocephin and lactulose. Patient mental status is improving with clinical treatment. This AM she had hemoglobin drop from 8.0 to 6.4, has finished one unit of PRBC. Patient would likely benefit from an EGD or colonoscopy to rule out any GI bleed, however since small hematoma noted, transferred to facility with neurosurgical capabilities in case she needs serial monitoring in case she does have any procedure that may change intracranial pressures. She is currently hemodynamically stable - Time Spent with Patient Total time spent providing and/or coordinating discharge services: - Discharge Medications Home Medications: Calcium Citrate/Vitamin D3 [Calcium Citrate-Vit D3 Tablet] 500 mg PO BID [History] Cholecalciferol (Vitamin D3) [Vitamin D3] 1,000 unit PO DAILY 10/19/15 [History] L.acidoph,Paracasei, B.lactis [Probiotic] 1 cap PO DAILY 10/19/15 [History] Lactose-Reduced Food [Ensure High Protein] 1 bottle PO BID 10/19/15 [History] Levothyroxine [Synthroid] 175 mcg PO DAILY 10/19/15 [History] Melatonin 10 mg PO HS 10/19/15 [History] Multivitamin [Multivitamins] 1 cap PO DAILY 10/19/15 [History] Omeprazole [PriLOSEC] 20 mg PO BID 10/19/15 [History] Paricalcitol [Zemplar] 1 mcg PO DAILY 10/19/15 [History] Sertraline [Zoloft] 100 mg PO BID 10/19/15 [History] Propranolol HCl 40 mg PO BID 08/07/17 [History] Cyanocobalamin (B-12) [Vitamin B12] 1,000 mcg PO DAILY 10/18/17 [History] Duloxetine HCl [Cymbalta] 60 mg PO BID 10/18/17 [History] Tizanidine HCl [Zanaflex] 4 mg PO TID PRN 10/18/17 [History] Collagenase Oint [Santyl] 1 appl TP DAILY tube 10/21/17 [Rx] Docusate [Colace] 100 mg PO BID capsule 10/21/17 [Rx] Gabapentin [Neurontin] 300 mg PO BID #10 10/21/17 [Rx] Gentamicin Oint [Garamycin] 1 appl TP DAILY tube 10/21/17 [Rx] Darbepoetin [Aranesp] 40 mcg SQ QWEEK syringe 11/16/17 [Rx] Lactulose 20 gm PO BID udc 11/16/17 [Rx] Rifaximin [Xifaxan] 600 mg PO BID tablet 11/16/17 [Rx] Allergies/Adverse Reactions: 3 Allergy/AdvReac Type Severity Reaction Status Date / Time ketorolac [From Toradol] AdvReac See Verified 06/29/17 23:20 Comments NSAIDS (Non-Steroidal AdvReac See Verified 06/29/17 23:20 Anti-Inflamma Comments sulfamethoxazole AdvReac See Verified 06/29/17 23:20 [From Bactrim] Comments trimethoprim [From Bactrim] AdvReac See Verified 06/29/17 23:20 Comments Date of admission: 11/15/17 02:34 Primary care physician: Az Rene MD Consults: 11/15/17 03:58 Consult to Wound Care [CONS] Routine Reason for Consult: Sacral decubitus ulcer stage IV Call Completed: No 11/15/17 04:12 Consult to Nephrology [CONS] Routine Consulting Provider: Kidney Bella/ONESIMO/WU/GEM Reason for Consult: Acute on chronic renal failure Call Completed: Yes Consult to Urology [CONS] Routine Consulting Provider: [facility] [place] Reason for Consult: Hematuria Call Completed: Yes 11/15/17 11:09 Consult to Camera Person [CONS] Routine Reason for SW Consult: Please evaluate for dialysis unit chair time. She is followed by Dr. Briceno. 11/16/17 06:00 Consult to Interventional Radiology [CONS] Routine Consulting Provider: Radiology Interventional [place]s Reason for Consult: Please evaluation for Placement of Permacath for initiation of chronic dialysis. Call Completed: No 11/16/17 07:30 Consult to Dialysis [CONS] ONCE 11/16/17 08:23 Consult to Gastroenterology [CONS] Routine Consulting Provider: Sunitha Blanco Reason for Consult: Possible GI bleed Call Completed: Yes Discharging clinician: Aixa Moraes - Constitutional Vitals: Temp Pulse Resp BP Pulse Ox 98.7 F 62 20 135/73 98 11/16/17 09:40 11/16/17 10:00 11/16/17 10:00 11/16/17 10:00 11/16/17 10:00 General appearance: Present: A&O X 1, no acute distress - Head Head exam: Present: atraumatic, normocephalic - Eye Eye exam: Present: PERRL, conjuntiva pink, sclera anicteric Pupils: Present: PERRL - Neck Neck exam general surgery: Present: supple, trachea midline. Absent: lymphadenopathy - Respiratory Respiratory exam: Present: CTAB. Absent: accessory muscle use, rales, rhonchi, wheezes - Cardiovascular Cardiovascular exam: Present: RRR, +S1, +S2. Absent: diastolic murmur, gallop, rubs, systolic murmur - GI/Abdominal GI/Abdominal exam: Present: normal bowel sounds, soft, no peritoneal signs. Absent: distended, tenderness - Extremities Exam Extremities exam: Present: warm, radial pulses palpable and symmetrical. Absent : calf tenderness, cyanotic, pedal edema - Neurological Exam Neurological exam: Present: altered, CN II-XII intact, reflexes normal, no focal deficits, strengths equal and symetr throughout. Absent: pronater drift, facial droop, speech deficit - Skin Skin exam: Present: dry, intact - Patient Status Disposition: Transfer Other Condition: Undetermined Functional capacity at discharge: bed bound Overall status at discharge: patient is not back to baseline - Discharge Instructions Follow Up With: Az Rene MD [Primary Care Provider] - - Diet and Activity Activity: as per physical therapy Diet: advance to your usual diet - VTE Documentation of Mechanical Device: Intermittent pneumatic compression device
--- NOTE | 2017-11-16 11:47 | Gastroenterology Consult Note ---
Date of Encounter: 11/16/17 Time of Encounter: 09:30 - Time Spent With Patient Total time spent is greater than 50% in coordination of care (as documented) at patient's floor/unit and/or counseling patient: GI History of Present Illness - Data of Consult Patient: known to practice within the last 3 years Consult date: 11/16/17 Requesting Physician: Aixa Moraes MD - Consult Narrative Reason for consult: Possible GI bleed, hepatic encephalopathy History of present illness: Ms. Taylor is a 62 year old female with PMHx of cirrhosis, HTN, ESRD, stage IV sacral decubitus ulcer, recent hip surgery on 10/19/17, presented to [facility] for altered mental status. History mainly obtained from previous chart. Patient said she was sent to ER because she does not feel good, with muscle twitching. Patient denies abdominal pain, nausea, diarrhea, or fever. In ER, she was found high-level ammonia at 112, UTI by urinalysis, and acute on chronic renal failure with BUNs over 150, creatinine 5.46, and a potassium 6.1. Patient was given IV fluid for 2 L, insulin plus D50, bicarbonate, lactulose 30 ml, and Rocephin 1g in [facility]. Pt has been continued on Lactulose and Rifaximin. On admission MELD-Na 22, Kevin-Najera class B-C, DF 11.5. Hgb 8 on admission and this AM Hgb 6.4. Procedures: EGD 11/01/2014 Dr. Ortiz: Normal stomach and gastric pouch. Colonoscopy 11/28/2013 Dr. Ortiz: 3mm sigmoid, diverticulosis, repeat in 5 years. EGD 11/28/2013 Dr. Ortiz: Gastric ulcer NSAIDs: None Anticoagulation: None A/P 1. Cirrhosis: On admission MELD-Na 22, Kevin-Najera class B-C, DF 11.5. Titrate Lactulose for 2-4 BMs daily. Continue Rifaximin 550 mg BID as outpatient, and 600 mg BID while inpatient. Plan for EGD for variceal surveillance. Check AFP and liver US for HCC surveillance. 2. Hepatic encephalopathy: Improved. Titrate lactulose for 2-4 bowel movements daily. Continue rifaximin. 3. Anemia: Hgb 8 on admission and this AM Hgb 6.4. Keep patient NPO, plan for EGD today to r/o esophagitis, gastritis, duodenitis, PUD, MW tear, or AVM. Past Med Surg Social Fam HX - Past Medical History Medical history: cirrhosis, hypertension, liver disease, renal disease, thyroid disease, other Psychiatric history: depression - Past Surgical History Surgical History: non-contributory, appendectomy, , cholecystectomy, hip replacement, knee replacement, orthopedic, other, bariatric surgery - Social History Smoking Status: Current every day smoker Smokeless Tobacco Status: No Alcohol use: none Drug use: none - Family History Father Adopted: No Living Status: Hx Family Cardiac Disorders: Yes (heart disease) Hx Family Respiratory Disorders: No Hx Family Cancer: No Hx Family GI Disorders: No Hx Family Endocrine Disorder: Yes Hx Family Neuromuscular Disorders: No Hx Family Neurologic Disorders: No Hx Family HEENT Disorders: No Hx Family Autoimmune Disorders: No Mother Adopted: No Living Status: - Gastrointestinal Gastrointestinal: Present: as per HPI - Constitutional Constitutional: as per HPI - EENT Eyes: as per HPI Ears: Present: as per HPI Nose, mouth and throat: Present: as per HPI - Cardiovascular Cardiovascular ROS: Present: as per HPI - Respiratory Respiratory IM: Present: as per HPI - Genitourinary Genitourinary: Absent: change in color, Urinary frequency - Neurological ROS Neurological GI: Present: as per HPI - Hematologic/Lymphatic Hematologic/Lymphatic pediatric: Present: as per HPI - Musculoskeletal Musculoskeletal ROS GI: Present: as per HPI - Integumentary Integumentary GI: Present: as per HPI - Psychiatric ROS Psychiatric GI: Present: as per HPI - Endocrine Endocrine IM: Present: as per HPI - Constitutional Vitals: Temp Pulse Resp BP Pulse Ox 98.7 F 62 20 135/73 98 11/16/17 09:40 11/16/17 10:00 11/16/17 10:00 11/16/17 10:00 11/16/17 10:00 General appearance: Present: cooperative, A&O X 3, no acute distress, answers questions appropriately - Head Head exam: Present: atraumatic, normocephalic - Eye Eye exam: Present: normal appearance, sclera anicteric - ENT ENT exam: Present: mucous membranes dry - Neck Neck exam general surgery: Present: normal inspection, trachea midline - Respiratory Respiratory exam: Present: CTAB - Cardiovascular Cardiovascular exam: Present: RRR, +S1, +S2 - GI/Abdominal GI/Abdominal exam: Present: soft, no peritoneal signs. Absent: distended, firm , guarding, tenderness - Rectal Rectal exam: Present: deferred - Extremities Exam Extremities exam: Present: warm - Neurological Exam Neurological exam: Present: no focal deficits - Psychiatric Psychiatric exam: Present: normal affect, normal mood - Skin Skin exam: Present: dry, intact, normal color, warm Results - Labs CBC & Chem 7: 11/16/17 04:18 11/16/17 04:18 Labs: Last Result Calcium 8.8 mg/dL (8.6-10.3) 11/16/17 04:18 Urine Opiates Screen Negative ng/mL (Lpreav=813) 11/16/17 00:02 Entire Visit Hgb 6.4 g/dL (11.5-15.4) L D 11/16/17 04:18 Hct 20.7 % (35.3-44.9) L 11/16/17 04:18 PT 13.7 Seconds (9.4-12.1) H 11/16/17 04:18 Total Bilirubin 0.5 mg/dL (0.3-1.0) 11/15/17 03:55 AST 10 Units/L (13-39) L 11/15/17 03:55 ALT 3 Units/L (7-52) L 11/15/17 03:55 Ammonia 74 mcmol/L (16-53) H 11/15/17 03:55 - ABG ABG results: PT/INR, D-dimer PT 13.7 Seconds (9.4-12.1) H 11/16/17 04:18 - Impressions Impressions Brain MRI 11/15/17 10:10 IMPRESSION: 1. Approximately 6 mm thick subdural collection along right cerebral convexity. Approximately 2mm thick subdural collection along the left cerebral convexity. No associated midline shift or significant mass effect. Differential includes late acute to subacute hematoma, and less likely infectious collection. No contrast was administered with this examination. Correlation with history is recommended. 2. No acute infarct, or significant mass effect. 3. Chronic small vessel ischemic white matter disease and moderate diffuse cerebral volume loss. Findings were discussed with Dr. Anderson at 2:29pm on 11/15/2017. D/ / 11/15/2017 14:15:16 Trip Ogden MD / marcie Interpreting Provider: Trip Ogden MD Consult Discharge Plan - Plan Referrals: Az Rene MD [Primary Care Provider] -
[2017-11-16 21:22] VITALS: BP 156/81
== END 2017-11-16 22:14 | disposition other institution (70) | DRG 441 ==
LOC: SUATTDRO 02:34 → ICNU 02:34
PROVIDERS: ADMIT Internal Medicine; ATTEND Student in an Organized Health Care Education/Training Program